=== PATIENT | female | born 1950 | race Caucasian/White ===

== ENCOUNTER → 2020-06-06 12:05 | Outpatient (CLI) | payer MEDICARE, SELFPAY ==
--- NOTE | ~2020-06-06 | MM_ITS ---
EXAMINATION: MM screening lyubov BI w paulo HISTORY: Screening mammogram TECHNIQUE: Craniocaudal and mediolateral oblique 3-D tomosynthesis images were obtained and synthetic 2-D images were generated. CAD analysis was submitted and interpreted. COMPARISON: 03/16/2019 diagnostic right and screening left digital mammogram and limited right breast u ltrasound 08/15/2018 limited right breast ultrasound 02/02/2018 diagnostic right digital mammogram and complete right breast ultrasound 01/27/2018 bilateral digital screening mammogram BREAST PARENCHYMAL COMPOSITION: There are scattered areas of fibroglandular density. FINDINGS: Occasional benign calcifications. Stable mild fibroglandular density. No suspicious mass or architectural distortion, malignant calcification, skin thickening or retraction or significant n ew or developing density is detected. IMPRESSION: 1. No mammographic evidence of malignancy. 2. Recommend routine screening mammography in one year. BI-RADS Category 2: Benign finding(s). Reviewed, dictated and finalized at location A.
== END ==
PROVIDERS: PCP Family Medicine; Visit Provider Family Medicine
DX: Z12.31 Encounter for screening mammogram for malignant neoplasm of breast (principal)
CPT/HCPCS: 77063; 77067

== ENCOUNTER 2020-12-26 15:31 | Outpatient (CLI) | payer MEDICARE, SELFPAY ==
--- NOTE | ~2020-12-26 | XR_ITS ---
XR knee RT min 4V DATE: 12/26/2020 15:49 INDICATION: Right knee pain TECHNIQUE: Marrowbone and standing AP, PA and lateral views COMPARISON: None FINDINGS: No fracture or dislocation or joint effusion. No periosteal reaction or bone destruction. Osteopenia. Chondrocalcinosis of medial and lateral compartment joint spaces. Joint spaces appear relatively pres erved. Slight periarticular spurring of the patella. IMPRESSION: Slight osteoarthritis at the patellofemoral compartments Chondrocalcinosis at medial and lateral compartments Osteopenia Reviewed, dictated and finalized at location B.
== END 2020-12-26 15:32 | disposition home or self-care (01) ==
PROVIDERS: PCP Family Medicine; Visit Provider Family Medicine
DX: M25.569 Pain in unspecified knee (principal); M17.11 Unilateral primary osteoarthritis, right knee; M11.261 Other chondrocalcinosis, right knee; M85.861 Other specified disorders of bone density and structure, right lower leg
CPT/HCPCS: 73564

== ENCOUNTER → 2021-07-15 13:26 | Outpatient (CLI) | payer MEDICARE, SELFPAY ==
--- NOTE | ~2021-07-15 | MM_ITS ---
EXAMINATION: MM screening lyubov BI w paulo HISTORY: Screening TECHNIQUE: Craniocaudal and mediolateral oblique 3-D tomosynthesis images were obtained and synthetic 2-D images were generated. CAD analysis was submitted and interpreted. COMPARISON: Comparison to multiple prior studies sequentially, with oldest reviewed study dated 12/16. BREAST PARENCHYMAL COMPOSITION: Breast composed of scattered areas of fibroglandular density FINDINGS: Bilateral breast asymmetries are stable. There is no evidence of suspicious mass, calcifica tion, or architectural distortion to suggest malignancy in either breast. There has been no suspiciou s interval change. IMPRESSION: 1. No mammographic evidence of malignancy. 2. Recommend routine screening mammography in one year. BI-RADS Category 1: Negative Reviewed, dictated and finalized at location A. [employer]PRISE [employer] ARCHITECT
== END ==
PROVIDERS: PCP Family Medicine; Visit Provider Family Medicine
DX: Z12.31 Encounter for screening mammogram for malignant neoplasm of breast (principal)
CPT/HCPCS: 77063; 77067

== ENCOUNTER 2022-03-10 09:42 | Outpatient (CLI) | payer MEDICARE, SELFPAY ==
--- NOTE | ~2022-03-10 | CT_ITS ---
EXAMINATION: CT abdomen pelvis wo/w con DATE: 03/10/2022 10:33 INDICATION: Colon cancer restaging TECHNIQUE: Computed tomography (CT) of the abdomen and pelvis was performed without and subsequently with 100 CC Omnipaque 350 intravenous contrast. Automated exposure control and iterative reconstructi on technique were employed. Exam dose: 680.54 mGy-cm total exam DLP. COMPARISON: December 03, 2016 CT abdomen pelvis FINDINGS: Minimal disc atelectasis and/or scarring at the lung bases. Fat-containing right foramen of Bochdalek hernia. Normal heart size. No pericardial or pleural effusion. Small sliding hiatal hernia. Numerous hepatic cysts are again noted. No pancreatic mass lesion. Normal splenic size. The gallbladder is present. No gallbladder wall thickening or pericholecystic fluid or fat stranding. No bile duct or pancreatic duct dilatation. Normal morphology of the adrenal glands. No renal mass lesion or urinary tract calculus or hydroureteronephrosis. A pessary device is noted. The urinary bladder is unremarkable. Status post hysterectomy. There is atherosclerotic calcification of the abdominal aorta and iliac arteries. No intraperitoneal or retroperitoneal or pelvic mass lesion or adenopathy or ascites is noted. Status post right colectomy. Diverticulosis of the colon; no CT evidence of diverticulitis. No bowel obstruction or intraperitonea l free air. Diffuse osteopenia. Chronic mild anterior wedge compression fracture deformity of T11. Burst fracture at T12, new since 12/03/2016. Severe degenerative disc disease noted at L4-5 and L5-S1. IMPRESSION: Status post right colectomy for colon malignancy; no recurrent or metastatic disease is evident Numerous hepatic cysts are again noted Diverticulosis of the colon; no CT evidence of diverticulitis Burst fracture at T12 Chronic T11 compression fracture Osteopenia Severe degenerative disc disease at L4-5 and L5-S1 Reviewed, dictated and finalized at Location A. Reviewed, dictated and finalized at location B.
[2022-03-10 10:25] LABS: Estimated Glomerular Filt Rate > 60
== END 2022-03-10 09:43 | disposition home or self-care (01) ==
PROVIDERS: PCP Family Medicine; Visit Provider Family Medicine
DX: K76.89 Other specified diseases of liver (principal); K86.2 Cyst of pancreas; Z90.49 Acquired absence of other specified parts of digestive tract; K57.90 Diverticulosis of intestine, part unspecified, without perforation or abscess without bleeding; S22.081A Stable burst fracture of T11-T12 vertebra, initial encounter for closed fracture; M85.89 Other specified disorders of bone density and structure, multiple sites; M51.37 Other intervertebral disc degeneration, lumbosacral region
CPT/HCPCS: 74178; Q9967

== ENCOUNTER 2022-05-20 15:21 | Outpatient (CLI) | payer MEDICARE, SELFPAY ==
--- NOTE | ~2022-05-20 | MR_ITS ---
EXAMINATION: MR knee RT wo con DATE: 05/20/2022 16:14 INDICATION: Right knee pain TECHNIQUE: Magnetic resonance imaging (MRI) of the right knee was performed without intravenous contr ast. Sequences included coronal PD-weighted FSE, coronal PD-weighted FS FSE, sagittal T2-weighted FS E, sagittal PD-weighted FS FSE and axial PD weighted fat saturated FSE. COMPARISON: None. FINDINGS: Medial compartment: Medial meniscus is normal. Articular cartilage is normal. Lateral compartment: Complex tear of the body and posterior horn of the lateral meniscus. Partial-thickness chondral ulcer ation involving greater than 50% the cartilage thickness at the central to posterior aspect of the la teral tibial plateau. Thin curvilinear fluid signal at the peripheral margins of an osteochondral les ion underlying the posterior weightbearing lateral femoral condyle. There is a shallow depression of the articular cortex and overlying articular cartilage which involves approximately 11 x 9 mm region. Articular cartilage along the remainder of the weightbearing lateral femoral condyle is normal. Patellofemoral compartment: Partial-thickness chondral ulceration involving greater than 50% the cartilage thickness and full/james r full-thickness chondral fissuring at the cephalad aspect of the patellar apical ridge and medial fa cet, the former with underlying subarticular edema-like signal change. Shallow chondral fissuring at the cephalad aspect of the lateral patellar facet. Partial-thickness cartilage loss with minimal tawny dral surface regularity lateral trochlea and inferior aspect of the trochlear groove. Ligaments and tendons: Anterior and posterior cruciate ligaments are normal. The medial collateral ligament and fibular mary ateral ligament complex are normal. The extensor mechanism is normal. The visualized medial and later al hamstring tendons as well as the iliotibial band are normal. Fluid: Physiologic amount of fluid in the joint space. No loose osteochondral bodies identified. Tiny Benitez' s cyst. Osseous/other: Bone alignment is normal. Osteochondral lesion as previously described at the posterior weightbearing lateral femoral condyle. No fracture or pathologic marrow replacing process. IMPRESSION: 1. Complex tear at the body and posterior horn of the lateral meniscus. 2. Osteochondral lesion with likely unstable osteochondral fragment and with some collapse of the art icular cortex and subtle depression of the overlying articular cartilage at the posterior weightbeari ng lateral femoral condyle. 3. Mild osteoarthritis with moderate and high-grade chondromalacia in the patellofemoral compartment and moderate grade chondral malacia in the lateral compartment. Reviewed, dictated and finalized at location B. IMPRESSION: 1. Complex tear at the body and posterior horn of the lateral meniscus. 2. Osteochondral lesion with likely unstable osteochondral fragment and with so me collapse of the articular cortex and subtle depression of the overlying frank cular cartilage at the posterior weightbearing lateral femoral condyle. 3. Mild osteoarthritis with moderate and high-grade chondromalacia in the guajardo lofemoral compartment and moderate grade chondral malacia in the lateral compar tment.
== END 2022-05-20 15:22 | disposition home or self-care (01) ==
PROVIDERS: PCP Emergency Medicine; Visit Provider Orthopaedic Surgery
DX: M17.11 Unilateral primary osteoarthritis, right knee (principal); M25.461 Effusion, right knee; S83.271A Complex tear of lateral meniscus, current injury, right knee, initial encounter
CPT/HCPCS: 73721

== ENCOUNTER 2022-07-07 11:26 | Day surgery (SDC) | payer MEDICARE, SELFPAY ==
[2022-06-25 11:23] VITALS: BMI 24.0
[2022-07-07 11:40] VITALS: BP 152/109; PULSE 100; RESP 16; TEMP 36.7; O2SAT 100
--- NOTE | 2022-07-07 12:25 | WPDANESEPPF ---
Anes - Initial Pre Proc Eval Procedure: Operation Date: 07/07/22 13:15 Proposed Procedures p Screening Colonoscopy - Se Barton MD Date/Time: 07/07/22 12:25 Surgeon: Se Barton MD Pre Op Diagnosis: History of colon cancer Patient Data Age: 72 Gender: F Height: 1.65 m Weight: 66.3 kg Allergies Allergy/AdvReac Type Severity Reaction Status Date / Time neomycin Allergy Intermediate RASH Verified 07/07/22 11:44 bacitracin Allergy Mild Unknown Verified 07/07/22 11:44 polymyxin B Allergy Mild Unknown Verified 07/07/22 11:44 Quinolones Allergy Mild Unknown Verified 07/07/22 11:44 atenolol Allergy Unknown constipatio Verified 07/07/22 11:44 n codeine Allergy Unknown Unknown Verified 07/07/22 11:44 lisinopril Allergy Unknown Skin Verified 07/07/22 11:44 Reaction metoprolol Allergy Unknown edema Verified 07/07/22 11:44 Home Medications Medication Instructions Recorded Confirmed Type cetirizine 10 mg tablet 5 mg PO DAILY 09/12/19 07/07/22 History diltiazem HCl 240 mg See Rx Instructions .Route 12/15/21 07/07/22 Rx capsule,extended release 24 hr .COMPLEX #90 caps sodium,potassium,mag sulfates 17.5 See Rx Instructions PO .COMPLEX 03/23/22 07/07/22 Rx gram-3.13 gram-1.6 gram oral soln #354 mL (Suprep Bowel Prep Kit) Patient hx anesthesia problems: none Family hx anesthesia problems: none Results Review: All pre-operative results and documents have been reviewed as part of the pre-operative evaluation. [facility] Past Medical History Medical History Breast tumor 1977, 1980, 2003 Calculus of parotid gland (~2010) Colon cancer 2014 colectomy stage one History of stress test (~2013) Surgical History Surgical History H/O lumpectomy History of cataract extraction (~1995) History of colectomy (~2013) History of colonoscopy (~09/02/16) History of hysterectomy (~1974) Hx of breast biopsy Family History Family History Mother Hypertension Diabetes mellitus Family history of glaucoma Family history of cardiovascular disease Father Hypertension Family history of malignant melanoma Sibling Cerebrovascular accident Other Family history of allergic disorder Family history of seizure disorder Social History Social History Smoking status: Former smoker Tobacco type: cigarettes Smoking end date: 08/09/11 Alcohol intake: unknown Substance use: never Substance use type: does not use Lack of Transportation: No Lack of Food: Never True Current Housing: I Have Housing Concerned About Future Housing: No Difficulty Paying Gas/Electric Bills: No Difficulty Paying for Meds: No Currently Unemployed: No Education: High School Diploma/GED Living arrangements: with family Spiritual care concerns: No Anes - Eval Final PreProcedure Day of Procedure 07/07/22 12:25 Patient weight: normal Heart: regular rate and rhythm Lungs: clear to auscultation Airway: Mallampati scale class II Neurological: alert and oriented Last oral intake: >/= 8 hours ASA classification: II Emergent: no Anesthetic plan: proceed Anesthesia type and monitoring: general GIVS and standard monitoring Results Review: All pre-operative results and documents have been reviewed as part of the pre-operative evaluation. Informed Consent: The patient's anesthetic plan and its attendant risks and benefits were discussed with the patient/family/POA. Questions were solicited and answers provided to the satisfaction of the patient/family/POA.
[2022-07-07] MEDS: LACTATED RINGERS 1,000 ML 150 ML IV CONT (12:37)
--- NOTE | 2022-07-07 13:16 | PM.HPGS ---
History of Present Illness History of Present Illness Consent: Risks, benefits, and alternatives have been discussed and questions answered. Patient agrees to proceed with procedure. Chief complaint: History of colon cancer Narrative: Areli Lemus is a 72 year old female Presents for screening colonoscopy. Patient has a history of colon cancer in the cecum diagnosed 2015. This was treated with right hemicolectomy. Follow-up colonoscopy 2016 revealed colon polyps. Patient presents today for follow-up surveillance colonoscopy. Patient's current weight appetite and bowel movements are normal. She denies abdominal pain. She has had no bleeding. Family history noncontributory. Review of Systems Review of Systems: Review of systems noncontributory. [facility] Past Medical History Medical History Breast tumor 1977, 1980, 2002 Calculus of parotid gland (~2010) Colon cancer 2014 colectomy stage one History of stress test (~2013) Surgical History Surgical History H/O lumpectomy History of cataract extraction (~1995) History of colectomy (~2013) History of colonoscopy (~09/02/16) History of hysterectomy (~1974) Hx of breast biopsy Family History Family History Mother Hypertension Diabetes mellitus Family history of glaucoma Family history of cardiovascular disease Father Hypertension Family history of malignant melanoma Sibling Cerebrovascular accident Other Family history of allergic disorder Family history of seizure disorder Social History Social History Smoking status: Former smoker Tobacco type: cigarettes Smoking end date: 08/09/11 Alcohol intake: unknown Substance use: never Substance use type: does not use Lack of Transportation: No Lack of Food: Never True Current Housing: I Have Housing Concerned About Future Housing: No Difficulty Paying Gas/Electric Bills: No Difficulty Paying for Meds: No Currently Unemployed: No Education: High School Diploma/GED Living arrangements: with family Spiritual care concerns: No Meds Home Medications and Allergies Home Medications Medication Instructions Recorded Confirmed Type cetirizine 10 mg tablet 5 mg PO DAILY 09/12/19 07/07/22 History diltiazem HCl 240 mg See Rx Instructions .Route 12/15/21 07/07/22 Rx capsule,extended release 24 hr .COMPLEX #90 caps sodium,potassium,mag sulfates 17.5 See Rx Instructions PO .COMPLEX 03/23/22 07/07/22 Rx gram-3.13 gram-1.6 gram oral soln #354 mL (Suprep Bowel Prep Kit) Allergies Allergy/AdvReac Type Severity Reaction Status Date / Time neomycin Allergy Intermediate RASH Verified 07/07/22 11:44 bacitracin Allergy Mild Unknown Verified 07/07/22 11:44 polymyxin B Allergy Mild Unknown Verified 07/07/22 11:44 Quinolones Allergy Mild Unknown Verified 07/07/22 11:44 atenolol Allergy Unknown constipatio Verified 07/07/22 11:44 n codeine Allergy Unknown Unknown Verified 07/07/22 11:44 lisinopril Allergy Unknown Skin Verified 07/07/22 11:44 Reaction metoprolol Allergy Unknown edema Verified 07/07/22 11:44 Vital Signs Vital Signs - 24 hr 07/07/22 11:40 Temperature 98.1 F Pulse Rate 100 Respiratory Rate 16 Blood Pressure 152/109 H Pulse Oximetry 100 Oxygen Delivery Room Air Exam Narrative: Physical exam reveals patient to be alert. Vital signs stable. HEENT exam is unremarkable. Patient is anicteric. Lungs are clear to auscultation and percussion. Heart is without murmur or extra sounds. Abdomen bowel sounds present soft nontender with no organomegaly. Digital external rectal exam normal. Assessment and Plan Assessment and plan (1) History of colon cancer: Code(s): Z85.038 - Personal history of other ma
[2022-07-07 13:39] VITALS: BP 121/77; PULSE 73; RESP 14; O2SAT 98
[2022-07-07 13:49] VITALS: BP 125/90; PULSE 67; RESP 14; O2SAT 100
[2022-07-07 13:59] VITALS: BP 139/87; PULSE 69; RESP 13; O2SAT 98
--- NOTE | 2022-07-07 14:22 | WPDANESPN ---
Anes - Prog Note Post-Op Date/Time: 07/07/22 14:22 Cardiovascular status: normal Respiratory status: normal Airway patency: baseline Mental status: baseline Post-Op hydration status: normal Vital Signs: Last Vital Signs Temp 36.7 C 07/07/22 11:40 Pulse 69 07/07/22 13:59 Resp 13 07/07/22 13:59 BP 139/87 07/07/22 13:59 Pulse Ox 98 07/07/22 13:59 O2 Del Method Room Air 07/07/22 13:59 Pain Score (VAS): 0 I/O: Intake & Output 07/06/22 07/07/22 07/07/22 23:59 07:59 15:59 Intake Total 700 Balance 700 Patient Feedback: Patient satisfied with anesthetic care.
== END 2022-07-07 14:23 | disposition home or self-care (01) ==
PROVIDERS: PCP Emergency Medicine; Visit Provider Internal Medicine Gastroenterology
PROC: 0DJD8ZZ Inspection of Lower Intestinal Tract, Via Natural or Artificial Opening Endoscopic (ICD-10-PCS; CPT 45378; principal; 2022-07-07 13:15)
DX: Z85.038 Personal history of other malignant neoplasm of large intestine (principal)
CPT/HCPCS: 45378

== ENCOUNTER 2022-08-14 08:19 | Outpatient (CLI) | payer MEDICARE, SELFPAY ==
--- NOTE | 2022-08-14 08:28 | ECG_ITS ---
Measurements Intervals [place] Rate: 61 P: 40 MN: 156 QRS: -6 QRSD: 98 T: 1 QT: 398 QTc: 403 Interpretive Statements SINUS RHYTHM BASELINE ARTIFACT- I, II, III, AVR, AVL, AVF, V1-V6 NORMAL ECG NO PREVIOUS ECG AVAILABLE FOR COMPARISON Electronically Signed On 08-14-2022 8:40:[address]MIN[employer]RATIVE ENGINEER by Juice Gill D.O.
== END 2022-08-14 08:20 | disposition home or self-care (01) ==
PROVIDERS: PCP Emergency Medicine; Visit Provider Orthopaedic Surgery
DX: Z01.818 Encounter for other preprocedural examination (principal); I10 Essential (primary) hypertension
CPT/HCPCS: 93005

== ENCOUNTER 2022-08-17 00:20 | Day surgery (SDC) | payer MEDICARE, SELFPAY ==
--- NOTE | 2022-08-13 13:35 | PC.NURSE ---
Report to the Outpatient Waiting Room, entrance under the green pavilion located off [facility], at time __1300 on date _08/17/22 . Planned Procedure Time: _1500 . Time changes happen often and if your time is changed the preop area will call you the afternoon before. - You and your visitor will be asked to self-screen and do not enter if you have any COVID symptoms. - Only one visitor is requested with a max of two and NO children visitors are allowed at this time. - The patient visitor may be requested to leave or wait in car when not with patient due to distancing restrictions. - A mask is optional within the hospital. Patients may have clear liquids (water, carbonated beverages, clear teas, apple juice) until 3 hours prior to surgery with a maximum of 20 ounces. - No food from midnight until time of surgery - Infants may have breast milk until 4 hours before surgery, infant formula 6 hours prior to surgery. - Children will be allowed to drink immediately following surgery. If applicable, please bring a bottle or sippy cup to assist with drinking. Juice, water, soda, and popsicles are readily available. For infants on formula, please bring formula the day of surgery. Pacifiers are allowed. Take the following medications with a SIP of water the morning of surgery: __DILTIAZEN EYE DROP Medications to discontinue per physician NONE Please no make-up, nail italian, hairspray, perfume, deodorant, or body powder the day of surgery. No jewelry (including any body piercings) or valuables the day of surgery, leave them at home. Please take a shower or bath the night before, or the morning of, surgery with an antibacterial soap. Wear comfortable, loose fitting clothing. Children are encouraged to wear pajamas. - Jewelry must be removed prior to entering the operating room. Rings and piercings that are not removed may be cut off. - The hospital will not accept responsibility for valuables. - Please leave all valuables, including medications, at home the day of surgery. If you are going home after surgery, a licensed helper/driver must drive you home. - NO public transportation without another adult if you receive anesthesia. - We recommend that an adult stay with you for 24 hours following discharge. - We also recommend that you do not drive, make important decision, drink alcoholic beverages, or take any drugs that were not prescribed by your health care provider for at least 24 hours after your discharge time. Follow any additional instructions given to you from your surgeon. If you or anyone in your household have experienced Covid symptoms in the past week, please notify your surgeon or the nurse liaison at the phone number below for possible testing. Telephone instructions given to __PATIENT and asked if any additional questions and then verbalized understanding. Patient advised to call surgeon office or pre surgery nurse liaison [phone] if any additional questions.
[2022-08-13 13:41] VITALS: BMI 25.0
[2022-08-17] VITALS (9 sets, daily range): BP systolic 140–180; BP diastolic 81–104; PULSE 68–88; RESP 15–20; TEMP 36.4–36.7; O2SAT 93–100
--- NOTE | 2022-08-17 11:44 | WPDHPUPDATE1 ---
History and Physical Update Update Date/Time: 08/17/22 11:44 History and Physical has been reviewed, including an updated exam of the patient. There are NO changes in the patient's condition. Risks, benefits, and alternatives have been discussed and questions answered. Patient agrees to proceed with procedure.
[2022-08-17] MEDS: ACETAMINOPHEN 500 MG TABLET 1000 MG PO (13:34)
--- NOTE | 2022-08-17 13:36 | WPDANESEPPF ---
Anes - Initial Pre Proc Eval Procedure: Operation Date: 08/17/22 15:00 Proposed Procedures p Right Knee Arthroscopic Partial Lateral Meniscectomy - Marc Coppola MD Date/Time: 08/17/22 13:36 Surgeon: Marc Coppola MD Pre Op Diagnosis: Lateral Meniscus Tear Rt Knee Patient Data Age: 72 Gender: F Height: 1.65 m Weight: 68.05 kg Allergies Allergy/AdvReac Type Severity Reaction Status Date / Time neomycin Allergy Intermediate RASH Verified 08/13/22 13:24 bacitracin Allergy Mild Unknown Verified 08/13/22 13:24 polymyxin B Allergy Mild Unknown Verified 08/13/22 13:24 Quinolones Allergy Mild Unknown Verified 08/13/22 13:24 codeine Allergy Unknown Unknown Verified 08/13/22 13:24 lisinopril Allergy Unknown Skin Verified 08/13/22 13:24 Reaction metoprolol Allergy Unknown edema Verified 08/13/22 13:24 atenolol AdvReac Unknown constipatio Verified 08/17/22 09:00 n Home Medications Medication Instructions Recorded Confirmed Type diltiazem HCl 240 mg See Rx Instructions .Route 12/15/21 08/13/22 Rx capsule,extended release 24 hr .COMPLEX #90 caps acetaminophen 650 mg 1,300 mg PO Q12H PRN Pain 08/13/22 08/13/22 History tablet,extended release (Tylenol Arthritis Pain) cetirizine 10 mg tablet (Zyrtec) 10 mg PO DAILY 08/13/22 08/13/22 History timolol maleate 0.5 % eye gel 1 drp EACH EYE DAILY 08/13/22 08/13/22 History forming solution Patient hx anesthesia problems: none Family hx anesthesia problems: none Results Review: All pre-operative results and documents have been reviewed as part of the pre-operative evaluation. [facility] Past Medical History Medical History (Updated 08/17/22 @ 13:36 by Derrick Baird DO) Breast tumor 1977, 1980, 2002 Calculus of parotid gland (~2010) Colon cancer 2014 colectomy stage one History of stress test (~2013) Hypertension Surgical History Surgical History H/O lumpectomy History of cataract extraction (~1995) History of colectomy (~2013) History of colonoscopy (~09/02/16) History of hysterectomy (~1974) Hx of breast biopsy Family History Family History Mother Hypertension Diabetes mellitus Family history of glaucoma Family history of cardiovascular disease Father Hypertension Family history of malignant melanoma Sibling Cerebrovascular accident Other Family history of allergic disorder Family history of seizure disorder Social History Social History Smoking packs per day: 1 Smoking cigarettes per day: 20.0 Years smoked: 40 Smoking pack-years: 40.00 Smoking status: Former smoker Tobacco type: cigarettes Smoking end date: 08/09/11 Alcohol intake: unknown Substance use: never Substance use type: does not use Lack of Transportation: No Lack of Food: Never True Current Housing: I Have Housing Concerned About Future Housing: No Difficulty Paying Gas/Electric Bills: No Difficulty Paying for Meds: No Currently Unemployed: No Education: High School Diploma/GED Living arrangements: with family Spiritual care concerns: No Anes - Eval Final PreProcedure Day of Procedure 08/17/22 13:36 Patient weight: normal Heart: regular rate and rhythm Lungs: clear to auscultation and normal air movement Airway: Mallampati scale class II Neurological: alert and oriented Last oral intake: >/= 8 hours ASA classification: III Emergent: no Anesthetic plan: proceed Anesthesia type and monitoring: general LMA and standard monitoring Results Review: All pre-operative results and documents have been reviewed as part of the pre-operative evaluation. Informed Consent: The patient's anesthetic plan and its attendant risks and benefits were discussed with the patient/family/POA. Questions were solicited and answers
[2022-08-17] MEDS: LACTATED RINGERS 1,000 ML 30 ML IV CONT (13:42)
--- NOTE | 2022-08-17 14:08 | SUR.PREOP ---
1400- REVIEWED ELEVATED BP WITH DR. KUMAR. NO ORDERS GIVEN, WILL CONTINUE TO MONITOR
[2022-08-17] MEDS: KETOROLAC 15 MG/ML VIAL (*BKC) IV PUSH (14:15)
[2022-08-17] MEDS: ceFAZolin 2 GM/D5W 50 ML 2 GM/50 ML BAG IVPB (14:56)
[2022-08-17] MEDS: BUPIVACAINE/EPINEPHRINE 0.5% 30 ML VIAL INFILTRATE (15:10)
--- NOTE | 2022-08-17 16:31 | P.OP_ITS ---
Procedure Note - Detailed Date of Procedure 08/17/22 Pre-op Diagnosis Lateral Meniscus Tear Rt Knee Post-op Diagnosis Same Procedure Performed Arthroscopic partial lateral meniscectomy, right knee. Surgeon Marc Coppola MD Anesthesia General Findings Mild degenerative changes primarily at the patella and lateral tibia. 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 Femur broached good. Medial compartment good. Chondrocalcinosis in the medial meniscus with mild fraying. ACL intact. New line extensive lateral meniscus tearing with loose flap near the notch and at the lateral joint. Description of Procedure The patient was identified and the surgical site confirmed and signed in the preoperative holding area. Antibiotics were started per protocol. She was brought to the operative room and transferred to the OR table. A general anesthetic was administered. Supine position with the operative lower extremity position in the leg manley after placement of a well padded tourniquet. The leg support was lowered and the contralateral limb was supported with a soft bolster. The knee was prepped and draped in the usual sterile fashion. A time- out was performed. The portal sites were marked and infiltrated with 0.5% Marcaine 20 mL. The limb was exsanguinated and the tourniquet inflated to 300 mL Hg. Standard inferolateral and inferomedial portals were established. Inflow was obtained with the saline pump. The camera was introduced. Diagnostic inspection of the joint was accomplished. The lateral meniscus was debrided with the arthroscopic shaver and punches until stable. The radiofrequency probe was also used for further d?bridement. The arthroscopic instruments were removed. The tourniquet released and wounds closed with subcutaneous 4-0 Monocryl absorbable suture. Steri strips and a sterile dressing were applied. A light elastic wrap was placed. The patient was extubated and brought to the recovery room in stable condition. Estimated Blood Loss -5.0 Drains No Complications No immediate complications Condition Stable Disposition PACU [facility] Billing Surgery - Charge Forward: Surgery Billing
== END 2022-08-17 17:45 | disposition home or self-care (01) ==
PROVIDERS: PCP Emergency Medicine; Visit Provider Orthopaedic Surgery
PROC: (CPT 29870; principal; 2022-08-17 15:00)
DX: S83.271A Complex tear of lateral meniscus, current injury, right knee, initial encounter (principal); W19.XXXA Unspecified fall, initial encounter; M22.41 Chondromalacia patellae, right knee; M11.261 Other chondrocalcinosis, right knee; I10 Essential (primary) hypertension; Z85.038 Personal history of other malignant neoplasm of large intestine; Z90.49 Acquired absence of other specified parts of digestive tract; Z87.891 Personal history of nicotine dependence
CPT/HCPCS: 29881; 93005; A9270; J0690; J1100; J1885; J2250; J2405; J2704; J3010; J7120

== ENCOUNTER 2022-09-15 19:30 | Emergency (ER) | payer MEDICARE, SELFPAY ==
--- NOTE | 2022-09-15 19:32 | ED.FEMALEGU ---
HPI - Female Genitourinary General Chief complaint: Urogenital-Female Stated complaint: Female Urogenital Time Seen by Provider: 09/15/22 19:38 Source: patient, RN notes reviewed and old records reviewed Mode of arrival: ambulatory Limitations: no limitations History of Present Illness HPI Narrative: 72-year-old female presents to the [facility] with concerns for a UTI. Since this evening has had urgency, burning and frequency. Had a history of UTIs. Last UTI was 2018. Denies any nausea vomiting. Denies abdominal pain, CVA tenderness MD elicited complaint: UTI Onset (ago): hour(s) Related Data Home Medications Medication Instructions Recorded Confirmed cetirizine 10 mg tablet (Zyrtec) 10 mg PO DAILY 08/13/22 09/15/22 timolol maleate 0.5 % eye gel 1 drp EACH EYE DAILY 08/13/22 09/15/22 forming solution Allergies Allergy/AdvReac Type Severity Reaction Status Date / Time metoprolol Allergy Intermediate Dizziness Verified 08/31/22 10:34 neomycin Allergy Intermediate RASH Verified 08/31/22 10:34 bacitracin Allergy Mild Unknown Verified 08/31/22 10:34 polymyxin B Allergy Mild Unknown Verified 08/31/22 10:34 Quinolones Allergy Mild Unknown Verified 08/31/22 10:34 codeine Allergy Unknown Unknown Verified 08/31/22 10:34 lisinopril Allergy Unknown Skin Verified 08/31/22 10:34 Reaction atenolol AdvReac Unknown constipatio Verified 08/31/22 10:34 n Review of Systems Review of Systems: All systems reviewed & are unremarkable except as noted in HPI and below Constitutional: Constitutional: Reports no additional constitutional complaints Eyes: Eyes: Reports no additional eye complaints ENT: Reports system reviewed and no additional complaints, except as documented Cardiovascular: Cardiovascular: Reports no additional cardiovascular complaints, Denies chest pain and Denies dyspnea Respiratory: Respiratory: Reports no additional respiratory complaints, Denies chest congestion, Denies cough and Denies dyspnea Gastrointestinal: Gastrointestinal: Reports no additional gastrointestinal complaints, Denies abdominal pain, Denies nausea and Denies vomiting Genitourinary: Genitourinary: Reports as per HPI and Reports dysuria Musculoskeletal: Musculoskeletal: Reports no additional musculoskeletal complaints Integumentary/Breasts: Skin/Breast: Reports system reviewed and no additional complaints, except as docu Neurologic: Reports system reviewed and no additional complaints, except as documented Psychiatric: Psychiatric: Reports no additional psychiatric complaints Allergic/Immunologic: Allergic/Immunologic: Reports no additional allergic/immunologic complaints [facility] Past Medical History Medical History Breast tumor 1977, 1980, 2002 Calculus of parotid gland (~2010) Colon cancer 2014 colectomy stage one History of stress test (~2013) Hypertension Surgical History Surgical History H/O lumpectomy History of cataract extraction (~1995) History of colectomy (~2013) History of colonoscopy (~09/02/16) History of hysterectomy (~1974) History of meniscectomy of right knee (~08/17/22) Arthroscopic Lateral Hx of breast biopsy Family History Family History Mother Hypertension Diabetes mellitus Family history of glaucoma Family history of cardiovascular disease Father Hypertension Family history of malignant melanoma Sibling Cerebrovascular accident Other Family history of allergic disorder Family history of seizure disorder Social History Social History Smoking packs per day: 1 Smoking cigarettes per day: 20.0 Years smoked: 40 Smoking pack-years: 40.00 Smoking status: Former smoker Tobacco type: cigarettes Smoking end date: 08/09/11 Alcohol intake: unknow
[2022-09-15 19:34] VITALS: BP 177/86; PULSE 81; RESP 16; TEMP 35.9; O2SAT 98
== END 2022-09-15 19:58 | disposition home or self-care (01) ==
PROVIDERS: Emergency Provider Nurse Practitioner; PCP Emergency Medicine
DX: N39.0 Urinary tract infection, site not specified (principal); Z87.891 Personal history of nicotine dependence; I10 Essential (primary) hypertension; Z85.038 Personal history of other malignant neoplasm of large intestine; Z90.49 Acquired absence of other specified parts of digestive tract
CPT/HCPCS: 81003; 87077; 87086; 87186; 99213; G0463

== ENCOUNTER → 2022-12-15 13:25 | Outpatient (CLI) | payer MEDICARE, SELFPAY ==
--- NOTE | ~2022-12-15 | MM_ITS ---
EXAMINATION: MM screening lyubov BI w paulo HISTORY: Screening mammogram TECHNIQUE: Craniocaudal and mediolateral oblique 3-D tomosynthesis images were obtained and synthetic 2-D images were generated. CAD analysis was submitted and interpreted. COMPARISON: 07/15/2021, 06/06/2020, 03/16/2019 BREAST PARENCHYMAL COMPOSITION:There are scattered areas of fibroglandular density. FINDINGS: No suspicious mass, calcification, or architectural distortion are identified in either john ast to suggest malignancy. There has been no suspicious interval change. IMPRESSION: No mammographic evidence of malignancy. Recommend routine screening mammography in one year. BI-RADS Category 1: Negative Reviewed, dictated and finalized at location .
== END ==
PROVIDERS: PCP Emergency Medicine; Visit Provider Emergency Medicine
DX: Z12.31 Encounter for screening mammogram for malignant neoplasm of breast (principal)
CPT/HCPCS: 77063; 77067

== ENCOUNTER → 2023-05-27 10:12 | Outpatient (CLI) | payer MEDICARE, SELFPAY ==
--- NOTE | ~2023-05-27 | DEXA_ITS ---
Bone Density Report Name: JORDAN BARAHONA Age: 73 Sex: Female Ethnicity: White Date of : 1950 Indication: postmenopausal; screening for osteoporosis; parental hip fracture; height loss; history of glucocorticoids; hysterectomy; Referring Provider: DEYSI MCKEON Study: Bone densitometry was performed. Exam Date: May 27, 2023 Accession number: [id number] Bone Density: Region BMD T-score Z-score Classification AP Spine (L1-L4) 0.769 -2.5 -0.3 Osteoporosis Femoral Neck (Left) 0.573 -2.5 -0.6 Osteoporosis Total Hip (Left) 0.674 -2.2 -0.6 Osteopenia Femoral Neck (Right) 0.553 -2.7 -0.8 Osteoporosis Total Hip (Right) 0.655 -2.4 -0.7 Osteopenia Total Hip Mean 0.665 -2.3 -0.7 Osteopenia World Health Organization criteria for BMD impression classify patients as: Normal (T-score at or above -1.0), Osteopenia (T-score between -1.0 and -2.5), or Osteoporosis (T-score at or below -2.5). 10-year Fracture Risk: FRAX not reported because: Some T-score for Spine Total or Hip Total or Femoral Neck at or below -2.5 Clinical Information Provided by Patient: Parent has had a hip fracture Has taken Glucocorticoids Has used the following medications: Vitamin D Has the following medical conditions: Hysterectomy, Hx of colon Patient maximum height was 66.0 Menopause Age: 25 No regular weight bearing exercise Drinks caffeinated beverages Onset of menses at age 11 Number of children 2 Impression: The patient has osteoporosis, based on the Right Femoral Neck T-score. The patient has risk factors, including: parental hip fracture, history of glucocorticoid therapy. Discussion: INCREASED RISK OF FRACTURE. BONE DENSITY IS UNDESIRABLY LOW AT ONE OR MORE SKELETAL SITES, CONSISTENT WITH POSTMENOPAUSAL OSTEOPOROSIS. This patient's lowest T-score meets the World Health Organization's (WHO) criteria for osteoporosis at one or more sites (T-score -2.5 or below). In untreated patients, the risk of osteoporotic fracture increases approximately two-fold for each 1.0 SD decrease in T-score. Low bone density is not the only risk factor for fracture; also consider factors such as patient's age, frailty or poor health, risk of falling, risk of injury, previous osteoporotic fracture, family history of osteoporosis, cigarette smoking, low body weight, etc. Not everyone with low bone mineral density has osteoporosis; osteomalacia and other metabolic bone disorders should also be considered. Patients who have osteoporosis should be evaluated for specific diseases and conditions (secondary causes) that may cause or contribute to bone loss. The [place] [employer]ocr[employer] (AACE) and National Osteoporosis Foundation (NOF) recommend pharmacologic intervention for all postmenopausal women whose T-score is in this range. The
== END ==
PROVIDERS: PCP Emergency Medicine; Visit Provider Emergency Medicine
DX: M85.88 Other specified disorders of bone density and structure, other site (principal); M81.0 Age-related osteoporosis without current pathological fracture
CPT/HCPCS: 77080

== ENCOUNTER 2023-10-07 09:54 | Emergency (ER) | payer MEDICARE, SELFPAY ==
[2023-10-07 10:12] VITALS: BP 185/83; PULSE 67; RESP 18; TEMP 36.3; O2SAT 98
--- NOTE | 2023-10-07 10:23 | ED.FEMALEGU ---
HPI - Female Genitourinary General Chief complaint: Urogenital-Female Stated complaint: uti symptoms Time Seen by Provider: 10/07/23 10:25 Source: patient Mode of arrival: ambulatory Limitations: no limitations History of Present Illness HPI Narrative: Areli is a 73-year-old female patient presenting to the clinic today with complaints of possible urinary tract infection. She reports she is having burning with urination and urgency as well. States that there is lot of pain over her bladder. Denies any abdomen pain or flank pain. Denies any fever, chills, or body aches. Related Data Home Medications Medication Instructions Recorded Confirmed cetirizine 10 mg tablet (Zyrtec) 10 mg PO DAILY 08/13/22 10/07/23 timolol maleate 0.5 % eye gel 1 drp EACH EYE DAILY 08/13/22 10/07/23 forming solution acetaminophen 650 mg 650 mg PO Q12H 09/28/22 10/07/23 tablet,extended release (Tylenol Arthritis Pain) psyllium husk 0.4 gram capsule 0.4 g PO DAILY 09/28/22 10/07/23 (Metamucil) Allergies Allergy/AdvReac Type Severity Reaction Status Date / Time metoprolol Allergy Intermediate Dizziness Verified 10/07/23 10:23 neomycin Allergy Intermediate RASH Verified 10/07/23 10:23 bacitracin Allergy Mild Unknown Verified 10/07/23 10:23 polymyxin B Allergy Mild Unknown Verified 10/07/23 10:23 Quinolones Allergy Mild Unknown Verified 10/07/23 10:23 codeine Allergy Unknown Unknown Verified 10/07/23 10:23 lisinopril Allergy Unknown Skin Verified 10/07/23 10:23 Reaction atenolol AdvReac Unknown constipatio Verified 10/07/23 10:23 n Review of Systems Review of Systems: Pertinent positives per HPI. Patient denies any fever, chills, rash, headache, visual changes, dizziness, cough, runny nose, sore throat, shortness of breath, chest pain, palpitations, nausea, vomiting, diarrhea, constipation, abdominal pain. [facility] Past Medical History Medical History Breast tumor 1978, 1980, 2003 Calculus of parotid gland (~2010) Colon cancer 2014 colectomy stage one History of stress test (~2013) Hypertension Surgical History Surgical History H/O lumpectomy History of cataract extraction (~1995) History of colectomy (~2013) History of colonoscopy (~09/02/16) History of hysterectomy (~1974) History of meniscectomy of right knee (~08/17/22) Arthroscopic Lateral Hx of breast biopsy Family History Family History Mother Hypertension Diabetes mellitus Family history of glaucoma Family history of cardiovascular disease Father Hypertension Family history of malignant melanoma Sibling Cerebrovascular accident Other Family history of allergic disorder Family history of seizure disorder Social History Social History Smoking packs per day: 1 Smoking cigarettes per day: 20.0 Years smoked: 40 Smoking pack-years: 40.00 Smoking status: Former smoker Tobacco type: cigarettes Smoking end date: 08/09/11 Alcohol intake: unknown Substance use: never Substance use type: does not use Lack of Transportation: No Lack of Food: Never True Current Housing: I Have Housing Concerned About Future Housing: No Difficulty Paying Gas/Electric Bills: No Difficulty Paying for Meds: No Currently Unemployed: No Education: High School Diploma/GED Living arrangements: with family Gender identity (if verbalized by the patient): Female Sexual Orientation (if Verbalized by the Patient): Straight or Heterosexual Spiritual care concerns: No Comments At the time of my signature, I reviewed and agree with the nursing past medical, surgical, social, and family history. There is no relevant family history pertinent to the patient complaint. Exam Narrative: General: Well-deve
== END 2023-10-07 10:30 | disposition home or self-care (01) ==
PROVIDERS: Emergency Provider Nurse Practitioner Family; PCP Emergency Medicine
DX: N39.0 Urinary tract infection, site not specified (principal); B95.1 Streptococcus, group B, as the cause of diseases classified elsewhere; I10 Essential (primary) hypertension; Z85.038 Personal history of other malignant neoplasm of large intestine; Z90.49 Acquired absence of other specified parts of digestive tract
CPT/HCPCS: 81003; 87077; 87086; 87088; 99213; G0463

== ENCOUNTER 2023-11-12 16:05 | Emergency (ER) | payer MEDICARE, SELFPAY ==
[2023-11-12 16:22] VITALS: BP 171/97; PULSE 92; RESP 16; TEMP 36.2; O2SAT 100
--- NOTE | 2023-11-12 16:59 | ED.FEMALEGU ---
HPI - Female Genitourinary General Chief complaint: Urogenital-Female Stated complaint: Urinary Problems Time Seen by Provider: 11/12/23 16:54 Source: patient, RN notes reviewed and old records reviewed Mode of arrival: ambulatory Limitations: no limitations History of Present Illness HPI Narrative: Patient presents today complaining of a 4 day history of dysuria, frequency, urgency, voiding small amounts. Denies hematuria, abdominal pain, back pain, fever. No [id number] treatment prior to arrival. Review of urine culture from September 2019 for showed a some growth group beta strep. Related Data Home Medications Medication Instructions Recorded Confirmed cetirizine 10 mg tablet (Zyrtec) 10 mg PO DAILY 08/13/22 11/12/23 timolol maleate 0.5 % eye gel 1 drp EACH EYE DAILY 08/13/22 11/12/23 forming solution acetaminophen 650 mg 650 mg PO Q12H 09/28/22 11/12/23 tablet,extended release (Tylenol Arthritis Pain) psyllium husk 0.4 gram capsule 0.4 g PO DAILY 09/28/22 11/12/23 (Metamucil) Allergies Allergy/AdvReac Type Severity Reaction Status Date / Time atenolol AdvReac Intermediate constipatio Verified 11/12/23 16:35 n metoprolol AdvReac Intermediate Dizziness Verified 11/12/23 16:35 bacitracin AdvReac Mild Rash Verified 11/12/23 16:35 codeine AdvReac Mild Rash Verified 11/12/23 16:35 lisinopril AdvReac Mild Skin Verified 11/12/23 16:35 Reaction neomycin AdvReac Mild RASH Verified 11/12/23 16:35 polymyxin B AdvReac Mild Rash Verified 11/12/23 16:35 Quinolones AdvReac Mild Rash Verified 11/12/23 16:35 Review of Systems Review of Systems: CONSTITUTIONAL: Denies body aches, fever, chills, or sweats. EYES: Denies visual changes, redness, or discharge. ENT: Denies rhinorrhea, congestion, sore throat, or otalgia. CARDIOVASCULAR: Denies chest pain, palpitations, or edema. RESPIRATORY: Denies cough or dyspnea. GASTROINTESTINAL: Denies abdominal pain, nausea, vomiting, or diarrhea. GENITOURINARY: + dysuria, frequency, urgency SKIN: Denies rash, itching, or wounds. MUSCULOSKELETAL: Denies back pain, joint pain, or myalgia. NEUROLOGIC: Denies headache, numbness, tingling, or weakness. PSYCH: Denies depression or anxiety. [facility] Past Medical History Medical History Breast tumor 1977, 1980, 2003 Calculus of parotid gland (~2010) Colon cancer 2014 colectomy stage one History of stress test (~2013) Hypertension Surgical History Surgical History H/O lumpectomy History of cataract extraction (~1995) History of colectomy (~2013) History of colonoscopy (~09/02/16) History of hysterectomy (~1974) History of meniscectomy of right knee (~08/17/22) Arthroscopic Lateral Hx of breast biopsy Family History Family History Mother Hypertension Diabetes mellitus Family history of glaucoma Family history of cardiovascular disease Father Hypertension Family history of malignant melanoma Sibling Cerebrovascular accident Other Family history of allergic disorder Family history of seizure disorder Social History Social History Smoking packs per day: 1 Smoking cigarettes per day: 20.0 Years smoked: 40 Smoking pack-years: 40.00 Smoking status: Former smoker Tobacco type: cigarettes Smoking end date: 08/09/11 Alcohol intake: unknown Substance use: never Substance use type: does not use Lack of Transportation: No Lack of Food: Never True Current Housing: I Have Housing Concerned About Future Housing: No Difficulty Paying Gas/Electric Bills: No Difficulty Paying for Meds: No Currently Unemployed: No Education: High School Diploma/GED Living arrangements: with family Gender identity (if verbalized by the patient):
== END 2023-11-12 17:10 | disposition home or self-care (01) ==
PROVIDERS: Emergency Provider Nurse Practitioner; PCP Emergency Medicine
DX: N30.01 Acute cystitis with hematuria (principal); B95.1 Streptococcus, group B, as the cause of diseases classified elsewhere; I10 Essential (primary) hypertension; Z85.038 Personal history of other malignant neoplasm of large intestine
CPT/HCPCS: 81003; 87086; 99213; G0463

== ENCOUNTER 2024-01-10 12:02 | Outpatient (CLI) | payer MEDICARE, SELFPAY ==
--- NOTE | ~2024-01-10 | MM_ITS ---
EXAMINATION: MM screening lyubov BI w paulo HISTORY: Screening TECHNIQUE: Craniocaudal and mediolateral oblique 3-D tomosynthesis images were obtained and synthetic 2-D images were generated. CAD analysis was submitted and interpreted. COMPARISON: Comparison to multiple prior studies sequentially, with oldest reviewed study dated 03/29. BREAST PARENCHYMAL COMPOSITION: There are scattered areas of fibroglandular density. FINDINGS: There is no evidence of suspicious mass, calcification, or architectural distortion to sugg est malignancy in either breast. There has been no suspicious interval change. IMPRESSION: 1. No mammographic evidence of malignancy. 2. Recommend routine screening mammography in one year. BI-RADS Category 1: Negative Reviewed, dictated and finalized at location B.
== END 2024-01-10 12:03 ==
PROVIDERS: PCP Emergency Medicine; Visit Provider Emergency Medicine
DX: Z12.31 Encounter for screening mammogram for malignant neoplasm of breast (principal)
CPT/HCPCS: 77063; 77067

== ENCOUNTER 2024-03-27 08:38 | Emergency (ER) | payer MEDICARE, SELFPAY ==
[2024-03-27 08:50] VITALS: BP 141/80; PULSE 67; RESP 18; TEMP 36.2; O2SAT 98
--- NOTE | 2024-03-27 08:50 | ED.GENADULT ---
HPI - General Adult General Chief complaint: Eye Problems Stated complaint: LT eye problems Time Seen by Provider: 03/27/24 08:50 Source: patient, RN notes reviewed and old records reviewed Mode of arrival: ambulatory Limitations: no limitations History of Present Illness HPI narrative: [age] female presents to [facility] with left upper eyelid swelling, pink in color, not warm to touch. No changes since toe it started on Wednesday, 5 days. Had been using warm compresses Treatments prior to arrival: heat therapy Related Data Home Medications Medication Instructions Recorded Confirmed cetirizine 10 mg tablet (Zyrtec) 10 mg PO DAILY 08/13/22 03/27/24 timolol maleate 0.5 % eye gel 1 drp EACH EYE DAILY 08/13/22 03/27/24 forming solution acetaminophen 650 mg 650 mg PO Q12H 09/28/22 03/27/24 tablet,extended release (Tylenol Arthritis Pain) psyllium husk 0.4 gram capsule 0.4 g PO DAILY 09/28/22 03/27/24 (Metamucil) Allergies Allergy/AdvReac Type Severity Reaction Status Date / Time atenolol AdvReac Intermediate constipatio Verified 03/27/24 08:44 n metoprolol AdvReac Intermediate Dizziness Verified 03/27/24 08:44 bacitracin AdvReac Mild Rash Verified 03/27/24 08:44 codeine AdvReac Mild Rash Verified 03/27/24 08:44 lisinopril AdvReac Mild Skin Verified 03/27/24 08:44 Reaction neomycin AdvReac Mild RASH Verified 03/27/24 08:44 polymyxin B AdvReac Mild Rash Verified 03/27/24 08:44 Quinolones AdvReac Mild Rash Verified 03/27/24 08:44 Review of Systems Review of Systems: All systems reviewed & are unremarkable except as noted in HPI and below Constitutional: Constitutional: Reports no additional constitutional complaints Eyes: Eyes: Reports as per HPI, Denies blind spots, Denies blurry vision, Denies change in vision, Denies eye discharge, Denies dry eyes, Denies irritation, Denies itchy eyes and Denies eye pain ENT: Reports system reviewed and no additional complaints, except as documented Cardiovascular: Cardiovascular: Reports no additional cardiovascular complaints, Denies chest pain and Denies dyspnea Respiratory: Respiratory: Reports no additional respiratory complaints, Denies chest congestion, Denies cough and Denies dyspnea Gastrointestinal: Gastrointestinal: Reports no additional gastrointestinal complaints, Denies abdominal pain, Denies nausea and Denies vomiting Musculoskeletal: Musculoskeletal: Reports no additional musculoskeletal complaints Integumentary/Breasts: Skin/Breast: Reports system reviewed and no additional complaints, except as docu Neurologic: Reports system reviewed and no additional complaints, except as documented Psychiatric: Psychiatric: Reports no additional psychiatric complaints Allergic/Immunologic: Allergic/Immunologic: Reports no additional allergic/immunologic complaints [facility] Past Medical History Medical History Breast tumor 1977, 1980, 2002 Calculus of parotid gland (~2010) Colon cancer 2014 colectomy stage one History of stress test (~2013) Hypertension Surgical History Surgical History H/O lumpectomy History of cataract extraction (~1995) History of colectomy (~2013) History of colonoscopy (~09/02/16) History of hysterectomy (~1974) History of meniscectomy of right knee (~08/17/22) Arthroscopic Lateral Hx of breast biopsy Family History Family History Mother Hypertension Diabetes mellitus Family history of glaucoma Family history of cardiovascular disease Father Hypertension Family history of malignant melanoma Sibling Cerebrovascular accident Other Family history of allergic disorder Family history of seizure disorder Social History Social History Smoking packs per day: 1 Smoking cigarettes per day:
== END 2024-03-27 08:59 | disposition home or self-care (01) ==
PROVIDERS: Emergency Provider Nurse Practitioner; PCP Emergency Medicine
DX: H00.014 Hordeolum externum left upper eyelid (principal); Z87.891 Personal history of nicotine dependence; I10 Essential (primary) hypertension; Z85.038 Personal history of other malignant neoplasm of large intestine
CPT/HCPCS: 99213; G0463

== ENCOUNTER 2024-08-30 07:24 | Outpatient (CLI) | payer MEDICARE, SELFPAY ==
--- NOTE | ~2024-08-30 | MR_ITS ---
EXAMINATION: MR knee LT wo con DATE: 08/30/2024 08:06 INDICATION: Unilateral primary osteoarthritis, left knee. TECHNIQUE: Magnetic resonance imaging (MRI) of the left knee was performed without intravenous contra st. Sequences included axial PD-weighted FS FSE, coronal PD-weighted FSE and PD-weighted FS FSE, sagi ttal PD-weighted FSE, and sagittal T2-weighted FS FSE. COMPARISON: Left knee radiographs 08/11/2024 FINDINGS: Medial compartment: Medial meniscus is normal. There is shallow partial-thickness cartilage loss of femoral condyle, wors t at the lateral and posterior articular surface. There is cartilage surface irregularity of tibial c ondyle. Osteophytes are noted. Lateral compartment: There is a complex tear of body and posterior horn of the meniscus. There is a subchondral insufficie ncy fracture of lateral femoral condyle spanning 4.0 cm anterior to posterior by 1.4 cm left to right with up to 2 mm offset at the articular cartilage. There is partial-thickness cartilage loss of femo ral condyle, deep at the medial articular surface. There is deep partial-thickness cartilage loss of tibial condyle involving the central articular surface and full-thickness cartilage loss of tibial co ndyle involving the medial articular surface with mild subchondral edema-like marrow signal intensity . Osteophytes are noted. Patellofemoral compartment: There is partial-thickness cartilage loss of patella, deep at the medial facet and median ridge with mild subchondral edema-like signal intensity. There is shallow partial-thickness cartilage loss of tr ochlea. Ligaments and tendons: The anterior cruciate ligament is normal. The posterior cruciate ligament is normal. There are change s of partial tear of medial collateral ligament with disruption of deep fibers proximally. There are changes of prior sprain of fibular collateral ligament characterized by thickening and increased sign al intensity proximally. There is mild patellar tendinopathy. Fluid: There is a large knee joint effusion. There is a large Benitez cyst. There is mild prepatellar and supe rficial infrapatellar bursitis. IMPRESSION: 1. Subchondral insufficiency fracture of lateral femoral condyle. 2. Severe chondrosis of lateral compartment, mild chondrosis of medial compartment, and moderate tawny drosis of patellofemoral compartment. 3. Tear of lateral meniscus. 4. Large knee joint effusion. 5. Large Benitez's cyst. Reviewed, dictated and finalized at location [] [employer] IMPRESSION: 1. Subchondral insufficiency fracture of lateral femoral condyle. 2. Severe chondrosis of lateral compartment, mild chondrosis of medial compartm ent, and moderate chondrosis of patellofemoral compartment. 3. Tear of lateral meniscus. 4. Large knee joint effusion. 5. Large Benitez's cyst.
--- OUTSIDE RECORDS SUMMARY | 2024-08-31 21:15 | XMS_ITS | Patient Health Summary ---
Author Organization [facility] Address [address] [place] [address] Care Team Providers Care Chief Arson Division Name Role Phone Jose Alvarado Primary Care Provider Unavailnic e Note from [facility],non-owned Affiliates and Associated Physician Practices is amultiple site organization consisting of ambulatory clinics and hospital sitesin [place], [place] and [place]. This disclosure is being madepursuant to the Care Everywhere program and may not contain all information available regarding this patient. Last updated 18.[facility] Allergies * Bacitracin(Unknown) * Codeine(Nausea and/or Vomiting) * Molds & Smuts(Unknown) * Neomycin(Unknown) * Polymyxin B(Unknown) Medications * Be aware that medications may not be up to date on this document. Alwaysverify current medications with the patient. * timolol gel-forming (TIMOPTIC-XE) 0.5 % ophthalmic gel-forming 1 (one) drop once daily * dilTIAZem coated beads 24hr (CARDIZEM CD) 240 MG capsule(Started 04/03/2018) Take 1 (one) capsule by mouth once daily 6 refills left * cetirizine (ZyrTEC Allergy) 10 MG gel capsule Take 1 (one) capsule by mouth once daily * aspirin buffered (BUFFERIN LOW DOSE) 81 MG tablet Take 1 (one) tablet by mouth once daily * hydroCHLOROthiazide (Hydrodiuril) 12.5 MG(Started 07/07/2023) Take 1 (one) tablet by mouth once daily Active Problems Problem Noted Date Diagnosed Date Cervicalgia 06/03/2011 Immunizations * Covid Pfizer primary monovalent 12+ yr 0.3mL Purple cap(Given 05/12/2021) * INFLUENZA VACCINE(Given 05/24/2020, 05/13/2018) Social History Tobacco Use Types Packs/Day Years Used Date Smoking Tobacco: Former Cigarettes 0.5 30 0 08/09/1981 - 08/09/2011 Smokeless Tobacco: Never Tobacco Cessation:Counseling Given: Not Answered Alcohol Use Standard Drinks/Week Comments No 0 (1 standard drink = 0.6 oz pur e alcohol) Sex and Gender Information Value Date Recorded Sex Assigned at Not on file Gender Identity Not on file Sexual Orientation Not on file Last Filed Vital Signs Vital Sign Reading Time Taken Comments Blood Pressure 122/72 01/12/2024 1:34 PM CDT Pulse 66 11/06/2009 10:07 AM CDT Temperature 36.3 ??C (97.4 ??F) 01/12/2024 1:34 PM CD T Respiratory Rate 16 11/06/2009 10:0 7 AM CDT Oxygen Saturation - - Inhaled Oxygen Concentration - - Weight 66.1 kg (145 lb 12.8 oz) 01/12/2024 1:34 PM CDT Height 165.1 cm (5' 5 ) 01/12/2024 1:34 PM CDT Body Mass Index 24.26 01/12/2024 1:34 PM CDT Procedures * URINALYSIS W/MICROSCOPIC NO CULTURE(Performed 10/01/2015) * URINALYSIS MICROSCOPIC ONLY REFLEXED(Performed 10/01/2015) * CULTURE URINE COMPREHENSIVE(Performed 10/01/2015) * CULTURE URINE(Performed 03/04/2014) * FL IVP INTRAVENOUS PYELOGRAM(Performed 11/06/2009) Performed for Microscopic Hematuria * LAB HISTORICAL RESULTS-ONBASE(Performed 09/16/2008) Results * URINALYSIS MICROSCOPIC ONLY REFLEXED (10/01/2015 12:00 AM SOLID WASTE DISPOSAL MANAGER) WBC, UA None seen 0 - 5 /hpf [facility] (BEAKER) RBC UA None seen 0 - 2 /hpf [facility] (BEAKER) Epithelial Cells (non renal) None seen 0 - 10 /hpf [facility] (BEAKER) Bacteria UA None seen None seen/Few [facility] (BEAKER) 10/01/2015 10/01/2015 8:0 9 PM SOLID WASTE DISPOSAL MANAGER Narrative [facility] (BEAKER) - 10/03/2015 3:19 PM SOLID WASTE DISPOSAL MANAGER Performed at: ?? - [facility] [address] ??[id number] Inclusion Special Educator: Nick Denise PhD, Phone: ??[phone] Aguila Elizabeth MD LAB - URINALYSIS ORD ERABLES [facility] (BEAKER) * (ABNORMAL) URINALYSIS W/MICROSCOPIC NO CULTURE (10/01/2015 12:00 AM SOLID WASTE DISPOSAL MANAGER) Specific [place] 1.007 1.005 - 1.030 [facility] (BEAKER) pH Urine 6.5 5.0 - 7.5 [facility] (BEAKER) Color UA Yellow Yellow [facility] (BEAKER) Appearance Clear Clear [facility] (BEAKER) Leukocyte Esterase Negative Negative [facility] (BEAKER) Protein UA Negative Negative/Tra ce [facility] (BEAKER) Glucose UA Negative Negative [facility] (BEAKER) Ketone UA Negative Negative [facility] (BEAKER) Occult Blood 2+(A) Negative [facility] (BEAKER) Bilirubin Negative Negative [facility] (BEAKER) Urobilinogen Semi-Qn 0.2 0.2 - 1.0 mg/dL [facility] (BEAKER) Nitrite UA Negative Negative [facility] (BEAKER) Microscopic Examination See below: [facility] (BEAKER) Comment:Microscopic was amberly cated and was performed. Urine specimen (specimen) URINE SPECIMEN COLLECTION, CATHETERIZED / Unknown 10/01/2015 10/01/2015 8:09 PM SOLID WASTE DISPOSAL MANAGER Narrative [facility] (BEAKER) - 10/03/2015 3:19 PM SOLID WASTE DISPOSAL MANAGER Performed at: ??01 - [facility] [address] ??[id number] Inclusion Special Educator: Nick Denise PhD, Phone: ??[phone] Aguila Elizabeth MD LAB - URINALYSIS ORD ERABLES [facility] (SEVEN) * CULTURE URINE COMPREHENSIVE (10/01/2015 12:00 AM SOLID WASTE DISPOSAL MANAGER) Culture Urine Comprehensive Final report [facility] (SEVEN) Result 1 [facility] ([facility]) Comment:No growth in 36 - 48 hours. Urine specimen (specimen) 10/01/2015 10/01/2015 8:09 PM SOLID WASTE DISPOSAL MANAGER Narrative [facility] ([place]) - 10/03/2015 3:19 PM SOLID WASTE DISPOSAL MANAGER Preferred Lab:->[facility] Performed at: ??01 - [facility] [address] ??[id number] Inclusion Special Educator: Nick Denise PhD, Phone: ??[phone] Aguila Elizabeth MD LAB - MICROBIOLOGY O RDERABLES Performing Organization Address [facility] Co de Phone Number [facility] ([facility]) * CULTURE URINE (03/04/2014 10:39 AM CDT) Culture Urine Less than 10,000 CFU/ML of Normal Fecal Heydi [facility] Comment:. Culture Urine Greater than or Equal to 10,000 CFU/ML Normal Urogenital/ Skin Heydi [facility] Comment:. Urine specimen (specimen) URINE SPECIMEN OBTAINED BY CLEAN CATCH PROCEDURE / Unknown 03/04/2014 10:39 AM CDT 03/04/2014 8:38 PM CDT Narrative [facility] - 03/07/2014 1:46 PM CDT AndersonSpecimen#[id number] Meir Loc/Rm/Bed: EXPCARE H// CLN CATCH U Historical Provider LAB - MICROBIOLOG Y ORDERABLES [address] [phone] * IVP (11/06/2009 11:18 AM CDT) Anatomical Region Laterality Modality Abdomen Radio Fluoroscop y 11/06/2009 11:3 0 AM CDT Narrative 11/06/2009 1:04 PM CDT IVP: CLINICAL INFORMATION: ?? Microhematuria. FINDINGS: The outreach manager examination demonstrates normal psoas shadows and renal contours. No abnormal calcifications are identified. The bowel gas pattern is normal. Following intravenous contrast administration, there is normal symmetric bilateral concentration and excretion of contrast. The visualized renal calyces, infundibula and pelves are normal. The visualized ureters are normal. There is no obstruction, stricture or mucosal abnormality. The visualized bladder is normal. There is no postvoid residual. DIAGNOSIS: Normal examination. Procedure Note Bobby Lopez MD - 11/06/2009 IVP: CLINICAL INFORMATION: Microhematuria. FINDINGS: The outreach manager examination demonstrates normal psoas shadows and renal contours. No abnormal calcifications are identified. The bowel gas pattern is normal. Following intravenous contrast administration, there is normal symmetric bilateral concentration and excretion of contrast. The visualized renal calyces, infundibula and pelves are normal. The visualized ureters are normal. There is no obstruction, stricture or mucosal abnormality. The visualized bladder is normal. There is no postvoid residual. DIAGNOSIS: Normal examination. Aguila Elizabeth MD FLUOROSCOPY ORDERABL ES * LAB HISTORICAL RESULTS-ONBASE (09/16/2008) 09/16/2008 Historical Provider LAB - CHEMISTRY O RDERABLES [facility] Care Teams Chief Arson Division Relationship Specialty Start Date End Date Jose Alvarado PCP - General 07/28/23
--- OUTSIDE RECORDS SUMMARY | 2024-08-31 21:15 | XMS_ITS | Clinical Summary ---
Author Organization [facility] Address [address], [facility] [address] [place] [address] Phone Care Team Providers Care Corrosion Control Technician Name Role Phone Mark Lindo MD Primary Care Provider [phone] Se Corona DO Unavailable [phone] Allergies Active Allergy Reactions Criticality Noted Date Comments Codeine Unknown 09/11/2016 Neomycin-Bacitracin Zn-Polymyx Unknown 09/11 Medications polyethylene glycol (MIRALAX) Powder Use entire 255g bottle with 64oz of clear liquid as directed for colonoscopy prep. 255 g 0 6 Active indapamide (LOZOL) 1.25 MG Tablet Take 1.25 mg by mouth daily. 6 7 Active BYSTOLIC 10 MG Tablet Take 1 Tab by mouth daily. 0 6 Active timolol (TIMOPTIC) 0.5 % Solution Place 1 Drop in affected eye(s) nightly. 11 6 Active furosemide (LASIX) 20 MG Tablet Take 10 mg by mouth Every other day. Active Aspirin 81 MG Tablet Take 81 mg by mouth daily. Active Multiple Vitamins-Minera ls (MULTIVITAMIN PO) Take 1 Tab by mouth daily. Active Active Problems No known active problems Immunizations Immunization Administration Dates Next Due Covid-19, Mrna, Lnp-s, Pf, 30 Mcg/0.3 Ml Dose (P fizer) 10/21/2020,09/29/2020 Family History Medical History Relation Name Comments Heart Disease Brother Heart Disease Father Melanoma Father Heart Disease Mother Relation Name Status Comments Brother Father Mother Social History Tobacco Use Types Packs/Day Years Used Date Smoking Tobacco: Former Cigarettes 1 30 0 09/11/1981 - 09/11/2011 Smokeless Tobacco: Never Alcohol Use Standard Drinks/Week Comments No 0 (1 standard drink = 0.6 oz pur e alcohol) Comments Unknown Sex and Gender Information Value Date Recorded Sex Assigned at Not on file Legal Sex Female 7:52 PM CDT Gender Identity Not on file Sexual Orientation Not on file Plan of Treatment Health Maintenance Due Date Last Done Comments DEXA Bone Density 1950 Hepatitis C Virus (HCV) Screening 1950 TdaP Immunization 1950 Cologuard 2001 Immunochemical Fecal Occult Blood 2001 Mammogram 2001 Pneumococcal Immunization (50+ years) (1 of 1 - PCV) 2001 Zoster Immunization (1 of 2) 2001 Colonoscopy 04/13/2022 04/13/2019, 08/10, 06/12/2015 Colorectal Cancer Screening 04/13/2022 Influenza Immunization (#1) 04/09/202405/09, 04/17/2019, 05/12/2018, Additional history exists SARS-COV-2 Immunization ( season) 2024 12/08/2021, 05/12/2021, 10/21/2020, Additional history exists Respiratory Syncytial Virus (RSV) Immunization (Adult) (1 - 1-dose 75+ series) 2026 04/13/2019, 08/10, 06/12/2015 Hepatitis B Immunization Aged Out No longer eligible based on patient's age to complete this topic Meningococcal Immunization (ACWY) Aged Out No longer eligible based on patient's age to complete this topic Rotavirus Immunization Aged Out No lo nger eligible based on patient's age to complete this topic Procedures Procedure Name Priority Date/Time Associated Diagnosis Comments COLONOSCOPY Routine 04/13/2019 from Last 3 Months or Most Recently Relevant to Health Maintenance Results * COLONOSCOPY (04/13/2019) Se Corona DO PROCEDURE/MINOR SURGICAL ORDERA BLES Final Result from Last 3 Months or Most Recently Relevant to Health Maintenance Insurance MEDICARE C [facility] on file Care Teams Corrosion Control Technician Relationship Specialty Start Date End Date Mark Lindo MD [address] [place] [address] PCP - General Family Medicine 09/08/16 Se Corona DO [address] [place] [address] Gastroenterology 09/08/16
--- OUTSIDE RECORDS SUMMARY | 2024-08-31 21:15 | XMS_ITS | Referral Summary ---
Author Organization [facility] Address [address] [place] [address] Care Team Providers Care Flame Annealing Machine Setter Name Role Phone Jose Alvarado Primary Care Provider Unavailabl e Source Comments [facility],non-owned Affiliates and Associated Physician Practices is amultiple site organization consisting of ambulatory clinics and hospital sitesin [place], [place], [place] and [place]. This disclosure is being madepursuant to the Care Everywhere program and may not contain all information available regarding this patient. Last updated 18.[facility] [employer] Allergies Active Allergy Reactions Criticality Noted Date Comments Bacitracin Unknown 06/11/2020 Codeine Nausea and/or Vomiting 11/06/2009 Allergies per ivp questioning Molds & Smuts Unknown 06/11/2020 Neomycin Unknown 06/11/2020 Polymyxin B Unknown 06/11/2020 Medications * Be aware that medications may not be up to date on this document. Alwaysverify current medications with the patient. Medication Sig Dispensed Refills Start Date End Date Status timolol gel-forming (TIMOPTIC-XE) 0.5 % ophthalmic gel-forming 1 (one) drop once daily Active dilTIAZem coated beads 24hr (CARDIZEM CD) 240 MG capsule Take 1 (one) capsule by mouth once daily 6 04/03/2018 Active cetirizine (ZyrTEC Allergy) 10 MG gel capsule Take 1 (one) capsule by mouth once daily Active aspirin buffered (BUFFERIN LOW DOSE) 81 MG tablet Take 1 (one) tablet by mouth once daily Active hydroCHLOROthiazide (Hydrodiuril) 12.5 MG Take 1 (one) tablet by mouth once daily 07/07/2023 Active Active Problems Problem Noted Date Diagnosed Date Cervicalgia 06/03/2011 Immunizations Name Administration Dates Next Due Covid Pfizer primary monoval ent 12+ yr 0.3mL Purple cap 05/12/2021 INFLUENZA VACCINE 05/24/2020,05/13/2018 Social History Tobacco Use Types Packs/Day Years [...] Mass Index 24.26 01/12/2024 1:34 PM CDT Plan of Treatment Upcoming Encounters Date Type Department Care Team (Late st Contact Info) Description 01/11/2025 10:30 AM CDT Office Visit [facility]GE REPAIR[facility] [address] [facility] [address] [place] [address] Aguila Elizabeth Che, MD [address] [facility] [address] [place] [address] Care Teams Flame Annealing Machine Setter Relationship Specialty Start Date End Date Jose Alvarado PCP - General 07/28/23
--- OUTSIDE RECORDS SUMMARY | 2024-08-31 21:15 | XMS_ITS | Clinical Summary ---
Author Organization [facility] Address [address] [facility] [place] [address] Care Team Providers Care Producer Director Name Role Phone Jose Alvarado Primary Care Provider Unavailabl e Source Comments [facility],non-owned Affiliates and Associated Physician Practices is amultiple site organization consisting of ambulatory clinics and hospital sitesin [place], [place], [place] and [place]. This disclosure is being madepursuant to the Care Everywhere program and may not contain all information available regarding this patient. Last updated 18.[facility] [employer] Allergies Active Allergy Reactions Criticality Noted Date [...] 0.3mL Purple cap 05/12/2021 INFLUENZA VACCINE 05/24/2020,05/13/2018 Family History Medical History Relation Name Comments Hypertension Father Hypertension Mother Lupus Mother Lupus Sister Relation Name Status Comments Father Mother Sister Social History Tobacco Use Types Packs/Day Years [...] Description 01/11/2025 10:30 AM CDT Office Visit [facility] - LCSW [address], [facility] [address] [place] [address] Aguila Elizabeth Che, MD [address] [facility] [address] [place] [address] Health Maintenance Due Date Last Done Comments BONE DENSITY TESTING 1950 COLOGUARD (AGES 45-75) - COLON CA SCREENING 1950 COLON MONITORING 1951 COLONOSCOPY - COLON CA SCREENING 1950 CT COLONOGRAPHY - COLON CA SCREENING 1950 Colorectal Cancer Screening 1950 FIT - COLON CA SCREENING 1951 FLEX SIG - COLON CA SCREENING 1951 LIPID TESTING 1950 MAMMOGRAM 1950 HEPATITIS C SCREENING 05/01/1969 DTAP/TDAP/TD VACCINES (1 - Tdap) 1970 PNEUMOCOCCAL VACCINE 50+ (1 of 1 - PCV) 2001 ZOSTER VACCINE (1 of 2) 2001 COVID-19 VACCINE (4 - season) 2024 05/12/2021, 10/21/2020, 09/29/2020 INFLUENZA VACCINE (#1) 2024 , 05/24/2020, 04/17/2019, Additional history exists DEPRESSION SCREENING 08/09/2024 MEDICARE AWV ? CALENDAR YEAR 2024 Respiratory Syncytial Virus (RSV) Vaccine Pt: or over 60 yrs (1 - 1-dose 75+ series) 2026 HEPATITIS B VACCINE Aged Out No longe r eligible based on patient's age to complete this topic HIB VACCINE Aged Out No longer eligi ble based on patient's age to complete this topic HPV VACCINE Aged Out No longer eligi ble based on patient's age to complete this topic MENINGOCOCCAL (Group B) VACCINE Aged Out No longer eligible based on patient's age to complete this topic MENINGOCOCCAL VACCINE Aged Out No chelsea edith eligible based on patient's age to complete this topic Care Teams Producer Director Relationship Specialty Start Date End Date Jose Alvarado PCP - General 07/28/23
== END 2024-08-30 07:25 | disposition home or self-care (01) ==
PROVIDERS: PCP Nurse Practitioner Family; Visit Provider Orthopaedic Surgery
DX: M17.12 Unilateral primary osteoarthritis, left knee (principal); S72.422A Displaced fracture of lateral condyle of left femur, initial encounter for closed fracture; S83.282A Other tear of lateral meniscus, current injury, left knee, initial encounter; X58.XXXA Exposure to other specified factors, initial encounter; M94.262 Chondromalacia, left knee; M25.462 Effusion, left knee; M71.22 Synovial cyst of popliteal space [Baker], left knee
CPT/HCPCS: 73721

== ENCOUNTER 2024-09-22 09:11 | Outpatient (CLI) | payer MEDICARE, SELFPAY ==
--- OUTSIDE RECORDS SUMMARY | 2024-09-22 09:17 | XMS_ITS | Patient Health Summary ---
Author Organization [facility] Address [address] [facility] [place] [address] Care Team Providers Care Die Machine Operator Name Role Phone Jose Alvarado Primary Care Provider Unavailnic e Note from [facility],non-owned Affiliates and Associated Physician Practices is amultiple site organization consisting of ambulatory clinics and hospital sitesin [place], [place], [place] and [place]. This disclosure is being madepursuant to the Care Everywhere program and may not contain all information available regarding this patient. Last updated 18.[facility] Allergies * Bacitracin(Unknown) * Codeine(Nausea [...] 66 11/06/2009 10:07 AM CDT Temperature 36.3 C (97.4 F) 01/12/2024 1:34 PM CDT Respiratory Rate 16 11/06/2009 10:0 7 AM [...] URINALYSIS MICROSCOPIC ONLY REFLEXED (10/01/2015 12:00 AM COILED TUBING OPERATOR) WBC, UA None seen 0 - 5 /hpf [facility] (BEAKER) RBC UA None seen 0 - 2 /hpf [facility] (BEAKER) Epithelial Cells (non renal) None seen 0 - 10 /hpf [facility] (BEAKER) Bacteria UA None seen None seen/Few [facility] (BEAKER) 10/01/2015 10/01/2015 8:0 9 PM COILED TUBING OPERATOR Narrative [facility] (BEAKER) - 10/03/2015 3:19 PM COILED TUBING OPERATOR Performed at: [facility] [id number] Special Educator: Nick Denise PhD, Phone: [phone] Aguila Elizabeth MD LAB - URINALYSIS ORD ERABLES [facility] (BEAKER) * (ABNORMAL) URINALYSIS W/MICROSCOPIC NO CULTURE (10/01/2015 12:00 AM COILED TUBING OPERATOR) Specific [place] 1.007 1.005 - 1.030 [facility] (BEAKER) [...] [facility] (BEAKER) Microscopic Examination See below: [facility] (BEAKER) Comment:Microscopic was amberly cated and was performed. Urine specimen (specimen) URINE SPECIMEN COLLECTION, CATHETERIZED / Unknown 10/01/2015 10/01/2015 8:09 PM COILED TUBING OPERATOR Narrative [facility] (BEAKER) - 10/03/2015 3:19 PM COILED TUBING OPERATOR Performed at: - [facility] [id number] Special Educator: Nick Denise PhD, Phone: [phone] Aguila Elizabeth MD LAB - URINALYSIS ORD ERABLES Performing Organization Address City/[facility]/ZIP Co de Phone Number [facility] ([facility]) * CULTURE URINE COMPREHENSIVE (10/01/2015 12:00 AM COILED TUBING OPERATOR) Culture Urine Comprehensive Final report [facility] Result 1 [facility] Comment:No growth in 36 - 48 hours. Urine specimen (specimen) 10/01/2015 10/01/2015 8:09 PM COILED TUBING OPERATOR Narrative [facility] ([facility]) - 10/03/2015 3:19 PM COILED TUBING OPERATOR Preferred Lab:->[facility] Performed at: - [facility] [id number] Special Educator: Nick Denise PhD, Phone: [phone] Aguila Elizabeth MD LAB - MICROBIOLOGY O RDERABLES Performing Organization Address [facility] Co de Phone Number [facility] ([facility]) * CULTURE URINE (03/04/2014 10:39 AM CDT) Culture Urine Less than 10,000 CFU/ML of Normal Fecal Heydi [facility] Comment:. Culture Urine Greater than or Equal to 10,000 CFU/ML Normal Urogenital/ Skin Heydi [facility] Comment:. Urine specimen (specimen) URINE SPECIMEN OBTAINED BY CLEAN CATCH PROCEDURE / Unknown 03/04/2014 10:39 AM CDT 03/04/2014 8:38 PM CDT Narrative [facility] - 03/07/2014 1:46 PM CDT AndersonSpecimen#[id number] Meir Loc/Rm/Bed: EXPCARE H// CLN CATCH U Historical Provider LAB - MICROBIOLOG Y ORDERABLES Performing Organization Address [facility]/ZIP Co de Phone Number [address] [phone] * IVP (11/06/2009 11:18 AM CDT) Anatomical Region Laterality Modality Abdomen Radio Fluoroscop y 11/06/2009 11:3 0 AM CDT Narrative 11/06/2009 1:04 PM CDT IVP: CLINICAL INFORMATION: Microhematuria. FINDINGS: The grease rack worker examination demonstrates normal psoas shadows and renal [...] 11/06/2009 IVP: CLINICAL INFORMATION: Microhematuria. FINDINGS: The grease rack worker examination demonstrates normal psoas shadows and renal [...] is no postvoid residual. DIAGNOSIS: Normal examination. [facility] Aileen Elizabeth MD FLUOROSCOPY ORDERABL ES * LAB HISTORICAL RESULTS-ONBASE (09/16/2008) 09/16/2008 Historical Provider LAB - CHEMISTRY O RDERABLES Performing Organization Address City/State/[facility] Co de Phone Number [facility] Care Teams Die Machine Operator Relationship Specialty Start Date End Date Jose Alvarado PCP - General 07/28/23
--- OUTSIDE RECORDS SUMMARY | 2024-09-22 09:17 | XMS_ITS | Clinical Summary ---
Author Organization [facility] Address [address] [facility] [place] [address] Care Team Providers Care Glass Designer Name Role Phone Jose Alvarado Primary Care Provider Unavailabl e Source Comments [facility],non-owned Affiliates and Associated Physician Practices is amultiple site organization consisting of ambulatory clinics and hospital sitesin [place], [place], [place]. This disclosure is being madepursuant to the Care Everywhere program and may not contain all information available regarding this patient. Last updated 18.[facility] [employer] Allergies Active Allergy Reactions Criticality Noted Date [...] Description 01/11/2025 10:30 AM CDT [facility] AUTOMATED ACCESS SYSTEMS TECHNICIAN [address], [facility] [address] [place] [address] Aguila Elizabeth Che, MD [address] [facility] [address] [place] [address] Health Maintenance Due Date Last [...] history exists DEPRESSION SCREENING 08/09/2024 MEDICARE AWV CALENDAR YEAR 2024 Respiratory Syncytial Virus (RSV) [...] age to complete this topic Care Teams Glass Designer Relationship Specialty Start Date End Date Mcallen, Garcia PCP - General 07/28/23
--- OUTSIDE RECORDS SUMMARY | 2024-09-22 09:17 | XMS_ITS | Referral Summary ---
Author Organization [facility] Address [address] [facility] [place] [address] Care Team Providers Care Lead Relay Tester Name Role Phone Jose Alvarado Primary Care Provider Unavailabl e Source Comments [facility],non-owned Affiliates and Associated Physician Practices is amultiple site organization consisting of ambulatory clinics and hospital sitesin [place], [place], [place] and [place]. This disclosure is being madepursuant to the Care Everywhere program and may not contain all information available regarding this patient. Last updated 18.[facility] Shape Collage Allergies Active Allergy Reactions Criticality Noted Date [...] Description 01/11/2025 10:30 AM CDT Office Visit [facility] - DIRECTOR OF EMERGENCY NURSING [address], [facility] [address] [place] [address] Aguila Elizabeth Che, MD [address] [facility] [facility] [address] [place] [address] Care Teams Lead Relay Tester Relationship Specialty Start Date End Date Jose Alvarado PCP - General 07/28/23
--- OUTSIDE RECORDS SUMMARY | 2024-09-22 09:17 | XMS_ITS | Clinical Summary ---
Author Organization [facility] Address [address], [facility] [address] [place] [address] Phone Care Team Providers Care Ship Self Defense System Mk1 Operator Name Role Phone Mark Lindo MD Primary Care Provider [phone] Se Corona DO Unavailable [phone] Allergies Active Allergy Reactions Criticality Noted [...] Relevant to Health Maintenance Insurance MEDICARE C [facility] on file Care Teams Ship Self Defense System Mk1 Operator Relationship Specialty Start Date End Date Mark Lindo MD [address] [place] [address] PCP - General Family Medicine 09/08/16 Se Corona DO [address] [place] [address] Gastroenterology 09/08/16
--- NOTE | 2024-09-22 09:27 | ECG_ITS ---
Test Date: 2024-09-22 09:33:08 Measurements Intervals [place] Rate: 64 P: 54 KS: 154 QRS: 2 QRSD: 93 T: 31 QT: 379 QTc: 393 Interpretive Statements SINUS RHYTHM WITH SINUS ARRHYTHMIA BORDERLINE ST ABNORMALITY- LATERAL LEADS BASELINE ARTIFACT- I, II, AVR BORDERLINE ECG No previous ECG available for comparison Electronically Signed On 09-22-2024 10:02:43 CHICKEN CATCHER by Juice Gill D.O.
== END 2024-09-22 09:12 | disposition home or self-care (01) ==
LOC: ANHIMG 09:13 → ANHCARD 09:14
PROVIDERS: PCP Nurse Practitioner Family; Visit Provider Orthopaedic Surgery
DX: R94.31 Abnormal electrocardiogram [ECG] [EKG] (principal); I10 Essential (primary) hypertension
CPT/HCPCS: 93005

== ENCOUNTER 2024-09-28 08:48 | Outpatient (CLI) | payer MEDICARE, SELFPAY ==
--- OUTSIDE RECORDS SUMMARY | 2024-09-28 09:03 | XMS_ITS | Clinical Summary ---
Author Organization [facility] Address [address] [facility] [place] [address] Care Team Providers Care Pin Machine Tender Name Role Phone Jose Alvarado Primary Care Provider Unavailabl e Source Comments [facility],non-owned Affiliates and Associated Physician Practices is amultiple site organization consisting of ambulatory clinics and hospital sitesin [place], [place], [place] and [place]. This disclosure is being madepursuant to the Care Everywhere program and may not contain all information available regarding this patient. Last updated 18.[facility] [employer] Allergies Active Allergy Reactions Criticality Noted Date [...] Description 01/11/2025 10:30 AM CDT [facility] - MEDICAL LEADER [address], [place] [address] [place] [address] Aguila Elizabeth Che, MD [address] [facility] [address] [place] [address] Health Maintenance Due Date Last [...] age to complete this topic Care Teams Pin Machine Tender Relationship Specialty Start Date End Date [place], Garcia PCP - General 07/28/23
--- OUTSIDE RECORDS SUMMARY | 2024-09-28 09:03 | XMS_ITS | Clinical Summary ---
Author Organization [facility] Address [address], [facility] [address] [place] [address] Phone Care Team Providers Care Rigger Chief Name Role Phone Mark Lindo MD Primary Care Provider Se Corona DO Unavailable [phone] Allergies Active Allergy Reactions Criticality Noted [...] Relevant to Health Maintenance Insurance MEDICARE C [facility] on file Care Teams Rigger Chief Relationship Specialty Start Date End Date Mark Lindo MD [address] [place] [address] PCP - General Family Medicine 09/08/16 Se Corona DO [address] [place] [address] Gastroenterology 09/08/16
--- OUTSIDE RECORDS SUMMARY | 2024-09-28 09:03 | XMS_ITS | Patient Health Summary ---
Author Organization [facility] Address [address] [facility] [place] [address] Care Team Providers Care Lead Developer Name Role Phone Jose Alvarado Primary Care Provider Unavailnic e Note from [facility],non-owned Affiliates and Associated Physician Practices is amultiple site organization consisting of ambulatory clinics and hospital sitesin [place], [place], [place] and [place]. This disclosure is being madepursuant to the Care Everywhere program and may not contain all information available regarding this patient. Last updated 18.[facility] Allergies * Bacitracin(Unknown) * Codeine(Nausea and/or [...] URINALYSIS MICROSCOPIC ONLY REFLEXED (10/01/2015 12:00 AM [employer] SALES ENGINEER) WBC, UA None seen 0 - 5 /hpf [facility] (BEAKER) RBC UA None seen 0 - 2 /hpf [facility] (BEAKER) Epithelial Cells (non renal) None seen 0 - 10 /hpf [facility] (BEAKER) Bacteria UA None seen None seen/Few [facility] (BEAKER) 10/01/2015 10/01/2015 8:0 9 PM [employer] SALES ENGINEER Narrative [facility] (BEAKER) - 10/03/2015 3:19 PM [employer] SALES ENGINEER Performed at: [address] [id number] Acoustical Installer: Nick Denise PhD, Phone: [phone] Aguila Elizabeth MD LAB - URINALYSIS ORD ERABLES [facility] (BEAKER) * (ABNORMAL) URINALYSIS W/MICROSCOPIC NO CULTURE (10/01/2015 12:00 AM [employer] SALES ENGINEER) Specific [place] 1.007 1.005 - 1.030 [facility] (BEAKER) [...] CATHETERIZED / Unknown 10/01/2015 10/01/2015 8:09 PM [employer] SALES ENGINEER Narrative [facility] (BEAKER) - 10/03/2015 3:19 PM [employer] SALES ENGINEER Performed at: - [address] [id number] Acoustical Installer: Nick Denise PhD, Phone: [phone] Aguila Elizabeth MD LAB - URINALYSIS ORD ERABLES Performing Organization Address City/[facility]/ZIP Co de Phone Number [facility] ([facility]) * CULTURE URINE COMPREHENSIVE (10/01/2015 12:00 AM [employer] SALES ENGINEER) Culture Urine Comprehensive Final report [facility] ([facility] Result 1 [facility] ([facility] Comment:No growth in 36 - 48 hours. Urine specimen (specimen) 10/01/2015 10/01/2015 8:09 PM [employer] SALES ENGINEER Narrative [facility] ([facility]) - 10/03/2015 3:19 PM [employer] SALES ENGINEER Preferred Lab:->[facility] Performed at: - [address] [id number] Acoustical Installer: Nick Denise PhD, Phone: [phone] Aguila Elizabeth MD LAB - MICROBIOLOGY O RDERABLES Performing Organization Address [facility] Co de Phone Number [facility] ([facility]) * CULTURE URINE (03/04/2014 10:39 AM CDT) Culture Urine Less than 10,000 CFU/ML of Normal Fecal Heydi [facility] Comment:. Culture Urine Greater than or Equal to 10,000 CFU/ML Normal Urogenital/ Skin Heydi [facility] Comment:. Urine specimen (specimen) URINE SPECIMEN OBTAINED BY CLEAN CATCH PROCEDURE / Unknown 03/04/2014 10:39 AM CDT 03/04/2014 8:38 PM CDT Narrative [facility] - 03/07/2014 1:46 PM CDT AndersonSpecimen#[id number] Meir Loc/Rm/Bed: EXPCARE H// CLN CATCH U Historical Provider LAB - MICROBIOLOG Y ORDERABLES Performing Organization Address [facility]/ZIP Co de Phone Number [address] [phone] * IVP (11/06/2009 11:18 AM CDT) Anatomical Region Laterality Modality Abdomen Radio Fluoroscop y 11/06/2009 11:3 0 AM CDT Narrative 11/06/2009 1:04 PM CDT IVP: CLINICAL INFORMATION: Microhematuria. FINDINGS: The social worker health services examination demonstrates normal psoas shadows and renal [...] 11/06/2009 IVP: CLINICAL INFORMATION: Microhematuria. FINDINGS: The social worker health services examination demonstrates normal psoas shadows and renal [...] is no postvoid residual. DIAGNOSIS: Normal examination. [facility] Aileen Elizabeth MD FLUOROSCOPY ORDERABL ES * LAB HISTORICAL RESULTS-ONBASE (09/16/2008) 09/16/2008 Historical Provider LAB - CHEMISTRY O RDERABLES Performing Organization Address City/State/[facility] Co de Phone Number [facility] Care Teams Lead Developer Relationship Specialty Start Date End Date Jose Alvarado PCP - General 07/28/23
--- OUTSIDE RECORDS SUMMARY | 2024-09-28 09:03 | XMS_ITS | Referral Summary ---
Author Organization [facility] Address [address] [place] [address] Care Team Providers Care Vp Of Digital Marketing Name Role Phone Jose Alvarado Primary Care Provider Unavailabl e Source Comments [facility],non-owned Affiliates and Associated Physician Practices is amultiple site organization consisting of ambulatory clinics and hospital sitesin [place], [place], [place] and [place]. This disclosure is being madepursuant to the Care Everywhere program and may not contain all information available regarding this patient. Last updated 18.[facility] [employer] Allergies Active Allergy Reactions Criticality Noted Date [...] CDT Office Visit [facility] - DUMP MOTORMAN [address], [facility] [address] [place] [address] Aguila Elizabeth Che, MD [address] [facility] [address] [place] [address] Care Teams Vp Of Digital Marketing Relationship Specialty Start Date End Date Jose Alvarado PCP - General 07/28/23
[2024-09-28 10:54] LABS: Hemoglobin A1C 5.9 % (<5.7)
[2024-09-28 11:26] LABS: Urine Cotinine NEGATIVE
[2024-09-28 11:49] LABS: MRSA (PCR) NOT DETECTED (NOT DETECTE)
== END 2024-09-28 08:49 | disposition home or self-care (01) ==
LOC: ANHSURGERY 08:52
PROVIDERS: PCP Nurse Practitioner Family; Visit Provider Orthopaedic Surgery
DX: M17.2 Bilateral post-traumatic osteoarthritis of knee (principal)
CPT/HCPCS: 80307; 83036; 86850; 86900; 86901; 87641

== ENCOUNTER 2024-10-03 16:15 | Inpatient (IN) | payer MEDICARE, SELFPAY ==
[2024-09-28 09:13] VITALS: BP 158/81; PULSE 65; RESP 16; TEMP 36.9; O2SAT 97; BMI 24.7
--- NOTE | 2024-09-28 09:35 | PC.NURSE ---
Report to the Outpatient Waiting Room, entrance under the green pavilion located off [facility], at time ___10:00AM____ on date ___10/02/24____. Planned Procedure Time: ___12:00PM .? Time changes happen often and if your time is changed the preop area will call you the afternoon before. - You and your visitor will be asked to self-screen and do not enter if you have any COVID symptoms. Please call surgeon if you need to reschedule. - A mask is optional within the hospital at this time. Patients may have clear liquids (water, carbonated beverages, clear teas, apple juice) until 3 hours prior to surgery (9:00AM) with a maximum of 20 ounces. - No food from midnight until time of surgery and no smoking, or chewing tobacco (or any form of nicotine). No chewing gum, candy or mints. Take only the following medications with a SIP of water on the morning of surgery: ____DILTIAZEM, TIMOLOL. TRAMADOL NEEDED FOR PAIN DO NOT STOP ANY OF YOUR OTHER PRESCRIPTION MEDICATIONS PRIOR TO SURGERY EXCEPT THE FOLLOWING Hold all vitamins and supplements for 3 days per anesthesiologist.-09/28/24 Medications to discontinue per physician __HOLD MELOXICAM 7 DAYS PRE-OP PER DR MAZARIEGOS Date to take last dose 09/24/24 Please no make-up, nail comoran, hairspray, perfume, deodorant, or body powder the day of surgery.? No jewelry (including any body piercings) or valuables the day of surgery, leave them at home.? Please take a shower or bath the night before, or the morning of, surgery with an antibacterial soap.? Wear comfortable, loose fitting clothing.? - Jewelry must be removed prior to entering the operating room.? Rings and piercings that are not removed may be cut off. - The hospital will not accept responsibility for valuables.? - Please leave all valuables, including medications, at home the day of surgery. If you are going home after surgery, a licensed helper/driver must drive you home.? - NO public transportation without another adult if you receive anesthesia. - We recommend that an adult stay with you for 24 hours following discharge. - We also recommend that you do not drive, make important decision, drink alcoholic beverages, or take any drugs that were not prescribed by your health care provider for at least 24 hours after your discharge time. Follow any additional instructions given to you from your surgeon. Telephone instructions given to ___PATIENT & HUSB and asked if any additional questions and then verbalized understanding. Patient advised to call surgeon office or pre surgery nurse liaison [phone] if any additional questions.
[2024-10-02] VITALS (14 sets, daily range): BP systolic 130–176; BP diastolic 72–97; PULSE 74–106; RESP 16–20; TEMP 36.7–37.1; O2SAT 92–98
--- OUTSIDE RECORDS SUMMARY | 2024-10-02 01:51 | XMS_ITS | Clinical Summary ---
Author Organization [facility] Address [address], [facility] [address] [place] [address] Phone Care Team Providers Care Web Development Manager Name Role Phone Mark Lindo MD Primary Care Provider Se Corona DO Unavailable [phone] Allergies Active Allergy Reactions Criticality Noted [...] Relevant to Health Maintenance Insurance MEDICARE C [facility] on file Care Teams Web Development Manager Relationship Specialty Start Date End Date Mark Lindo MD [address] [place] [address] PCP - General Family Medicine 09/08/16 Se Corona DO [address] [place] [address] Gastroenterology 09/08/16
--- OUTSIDE RECORDS SUMMARY | 2024-10-02 01:51 | XMS_ITS | Clinical Summary ---
Author Organization [facility] Address [address] [place] [address] Care Team Providers Care Advanced Manufacturing Technician Name Role Phone Jose Alvarado Primary Care Provider Unavailabl e Source Comments [facility],non-owned Affiliates and Associated Physician Practices is amultiple site organization consisting of ambulatory clinics and hospital sitesin [place], [place], [place] and [place]. This disclosure is being madepursuant to the Care Everywhere program and may not contain all information available regarding this patient. Last updated 18.[facility] [employer] Allergies Active Allergy Reactions Criticality Noted Date [...] Description 01/11/2025 10:30 AM CDT [facility] ART PSYCHOTHERAPIST [address], [facility] [address] [place] [address] Aguila Elizabeth Che, MD [address] [facility] [address] [place] [address] Health Maintenance Due Date Last [...] age to complete this topic Care Teams Advanced Manufacturing Technician Relationship Specialty Start Date End Date [place], Garcia PCP - General 07/28/23
--- OUTSIDE RECORDS SUMMARY | 2024-10-02 01:51 | XMS_ITS | Referral Summary ---
Author Organization [facility] Address [address] [facility] [place] [address] Care Team Providers Care Nursing Center Tutor Name Role Phone Jose Alvarado Primary Care Provider Unavailabl e Source Comments [facility],non-owned Affiliates and Associated Physician Practices is amultiple site organization consisting of ambulatory clinics and hospital sitesin [place], [place], [place] and [place]. This disclosure is being madepursuant to the Care Everywhere program and may not contain all information available regarding this patient. Last updated 18.[facility] [employer] Allergies Active Allergy Reactions Criticality Noted Date [...] CDT Office Visit [facility] - PACKING ATTENDANT [address], [facility] [address] [place] [address] Aguila Elizabeth Che, MD [address] [facility] [address] [place] [address] Care Teams Nursing Center Tutor Relationship Specialty Start Date End Date Jose Alvarado PCP - General 07/28/23
--- OUTSIDE RECORDS SUMMARY | 2024-10-02 01:51 | XMS_ITS | Patient Health Summary ---
Author Organization [facility] Address [address] [place] [address] Care Team Providers Care Medical Administrative Assistant Name Role Phone Jose Alvarado Primary Care Provider Unavailnic e Note from [facility],non-owned Affiliates and Associated Physician Practices is amultiple site organization consisting of ambulatory clinics and hospital sitesin [place], [place], [place] and [place]. This disclosure is being madepursuant to the Care Everywhere program and may not contain all information available regarding this patient. Last updated 18.[facility] Allergies * Bacitracin(Unknown) * [...] URINALYSIS MICROSCOPIC ONLY REFLEXED (10/01/2015 12:00 AM INSOLE DEPARTMENT WORKER) WBC, UA None seen 0 - 5 /hpf [facility] (BEAKER) RBC UA None seen 0 - 2 /hpf [facility] (BEAKER) Epithelial Cells (non renal) None seen 0 - 10 /hpf [facility] (BEAKER) Bacteria UA None seen None seen/Few [facility] (BEAKER) 10/01/2015 10/01/2015 8:0 9 PM INSOLE DEPARTMENT WORKER Narrative [facility] (BEAKER) - 10/03/2015 3:19 PM INSOLE DEPARTMENT WORKER Performed at: [address] [id number] Hand Sander: Nick Denise PhD, Phone: [phone] Aguila Elizabeth MD LAB - URINALYSIS ORD ERABLES [facility] (BEAKER) * (ABNORMAL) URINALYSIS W/MICROSCOPIC NO CULTURE (10/01/2015 12:00 AM INSOLE DEPARTMENT WORKER) Specific [place] 1.007 1.005 - 1.030 [facility] (BEAKER) [...] CATHETERIZED / Unknown 10/01/2015 10/01/2015 8:09 PM INSOLE DEPARTMENT WORKER Narrative [facility] (BEAKER) - 10/03/2015 3:19 PM INSOLE DEPARTMENT WORKER Performed at: - [address] [id number] Hand Sander: Nick Denise PhD, Phone: [phone] Aguila Elizabeth MD LAB - URINALYSIS ORD ERABLES Performing Organization Address City/[facility]/ZIP Co de Phone Number [facility] ([facility]) * CULTURE URINE COMPREHENSIVE (10/01/2015 12:00 AM INSOLE DEPARTMENT WORKER) Culture Urine Comprehensive Final report [facility] ([facility] Result 1 [facility] ([facility] Comment:No growth in 36 - 48 hours. Urine specimen (specimen) 10/01/2015 10/01/2015 8:09 PM INSOLE DEPARTMENT WORKER Narrative [facility] ([facility]) - 10/03/2015 3:19 PM INSOLE DEPARTMENT WORKER Preferred Lab:->[facility] Performed at: - [address] [id number] Hand Sander: Nick Denise PhD, Phone: [phone] Aguila Elizabeth MD LAB - MICROBIOLOGY O RDERABLES Performing Organization Address [facility] Co de Phone Number [facility] ([facility]) * CULTURE URINE (03/04/2014 10:39 AM CDT) Culture Urine Less than 10,000 CFU/ML of Normal Fecal Heydi [facility] Comment:. Culture Urine Greater than or Equal to 10,000 CFU/ML Normal Urogenital/ Skin Heydi [facility] Comment:. Urine specimen (specimen) URINE SPECIMEN OBTAINED BY CLEAN CATCH PROCEDURE / Unknown 03/04/2014 10:39 AM CDT 03/04/2014 8:38 PM CDT Narrative [facility] - 03/07/2014 1:46 PM CDT AndersonSpecimen#[id number] Meir Loc/Rm/Bed: EXPCARE H// CLN CATCH U Historical Provider LAB - MICROBIOLOG Y ORDERABLES Performing Organization Address [facility]/ZIP Co de Phone Number [address] [phone] * IVP (11/06/2009 11:18 AM CDT) Anatomical Region Laterality Modality Abdomen Radio Fluoroscop y 11/06/2009 11:3 0 AM CDT Narrative 11/06/2009 1:04 PM CDT IVP: CLINICAL INFORMATION: Microhematuria. FINDINGS: The whiting can worker examination demonstrates normal psoas shadows and [...] 11/06/2009 IVP: CLINICAL INFORMATION: Microhematuria. FINDINGS: The whiting can worker examination demonstrates normal psoas shadows and [...] is no postvoid residual. DIAGNOSIS: Normal examination. [facility] Aileen Elizabeth MD FLUOROSCOPY ORDERABL ES * LAB HISTORICAL RESULTS-ONBASE (09/16/2008) 09/16/2008 Historical Provider LAB - CHEMISTRY O RDERABLES Performing Organization Address City/State/[facility] Co de Phone Number [facility] Care Teams Medical Administrative Assistant Relationship Specialty Start Date End Date Jose Alvarado PCP - General 07/28/23
[2024-10-02] MEDS: ACETAMINOPHEN 500 MG TABLET 1000 MG PO (10:58)
[2024-10-02] MEDS: TRANEXAMIC ACID 1,000MG/ISO100 1,000 MG/100 ML BAG 200 MG IVPB (11:40)
--- NOTE | 2024-10-02 11:40 | P.PNAN_ITS ---
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 Patient Data Age: 74 Gender: F Height: 1.65 m Weight: 67 kg Last Vital Signs Temp 98.7 F 10/02/24 10:15 Pulse 74 10/02/24 10:15 Resp 16 10/02/24 10:15 BP 159/79 H 10/02/24 10:15 Pulse Ox 98 10/02/24 10:15 O2 Del Method Room Air 10/02/24 10:15 Allergies Allergy/AdvReac Type Severity Reaction Status Date / Time bacitracin AdvReac Mild Rash Verified 10/02/24 10:28 codeine AdvReac Mild ABD PAIN, Verified 10/02/24 10:28 NAUSEA neomycin AdvReac Mild RASH Verified 10/02/24 10:28 polymyxin B AdvReac Mild Rash Verified 10/02/24 10:28 Home Medications ?Medication ?Instructions ?Recorded ?Confirmed ?Type timolol maleate 0.5 % eye gel 1 drp EACH EYE DAILY 08/13/22 09/28/24 History forming solution acetaminophen 650 mg 1,300 mg PO Q12H PRN pain 09/28/22 09/28/24 History tablet,extended release (Tylenol Arthritis Pain) psyllium husk 0.4 gram capsule 0.4 g PO DAILY 09/28/22 09/28/24 History (Metamucil) cholecalciferol (vitamin D3) 50 See Rx Instructions .Route 07/13/24 09/28/24 Rx mcg (2,000 unit) capsule .COMPLEX #90 caps diltiazem HCl 240 mg See Rx Instructions .Route 07/13/24 09/28/24 Rx capsule,extended release 24 hr .COMPLEX #90 caps hydrochlorothiazide 25 mg tablet 25 mg PO QAM #90 tabs 07/13/24 09/28/24 Rx acetaminophen 500 mg tablet 1,000 mg PO Q6H PRN pain 09/28/24 09/28/24 History (Acetaminophen Extra Strength) fluticasone propionate 50 2 spray intranasal DAILY PRN nasal 09/28/24 09/28/24 History mcg/actuation nasal congestion spray,suspension (24 Hour Allergy Relief) meloxicam 15 mg tablet 15 mg PO DAILY 09/28/24 09/28/24 History tramadol 50 mg tablet 50 mg PO Q8H PRN pain 09/28/24 09/28/24 History Patient hx anesthesia problems: none Family hx anesthesia problems: none Results Review: All pre-operative results and documents have been reviewed as part of the pre-operative evaluation. [facility] Past Medical History Medical History Sebaceous cyst Orthopedic aftercare Hypertension Complex tear of lateral meniscus of right knee Hepatic cyst Needs periodic surveillance with CT or MRI Colon cancer 2014 colectomy stage one History of stress test (~2013) Right knee DJD Lipoma Breast tumor 1977, 1980, 2002 Calculus of parotid gland (~2010) Surgical History Surgical History History of meniscectomy of right knee (~08/17/22) Arthroscopic Lateral H/O lumpectomy Hx of breast biopsy History of hysterectomy (~1974) History of cataract extraction (~1995) History of colectomy (~2013) History of colonoscopy (~09/02/16) Family History Family History Mother Hypertension Diabetes mellitus Family history of glaucoma Family history of cardiovascular disease Father Hypertension Family history of malignant melanoma Sibling Cerebrovascular accident Other Family history of allergic disorder Family history of seizure disorder Social History Social History Smoking packs per day: 1 Smoking cigarettes per day: 20.0 Years smoked: 40 Smoking pack-years: 40.00 Smoking status: Former smoker Tobacco type: cigarettes Smoking end date: 08/09/11 Alcohol intake: unknown Substance use: never Substance use type: does not use Lack of Transportation: No Lack of Food: Never True Current Housing: I Have Housing Concerned About Future Housing: No Difficulty Paying Gas/Electric Bills: No Difficulty Paying for Meds: No Currently Unemployed: No Education: High School Diploma/GED Living arrangements: with family Additional living arrangements comments: [facility] Gender identity (if verbalized by the patient): Female Sexual Orientation (if Verbalized by the Patient): Straight or Heterosexual Spiritual care concerns: No Anes - Eval Final PreProcedure Day of Procedure 10/02/24 11:40 Patient weight: normal Lungs: normal air movement Airway: Mallampati scale class II and special considerations (Upper and lower partial/dentures. ) Neurological: alert and oriented Last oral intake: >/= 8 hours ASA classification: III Emergent: no Anesthetic plan: proceed Anesthesia type and monitoring: general LMA and standard monitoring Results Review: All pre-operative results and documents have been reviewed as part of the pre- operative evaluation. HTN, noted borderline hyperlipidemia, no meds. Pt can walk short distances, no cp or sob. Informed Consent: The patient's anesthetic plan and its attendant risks and benefits were discussed with the patient/family/POA. Questions were solicited and answers provided to the satisfaction of the patient/family/POA.
--- NOTE | 2024-10-02 11:55 | WPDHPUPDATE1 ---
History and Physical Update Update Date/Time: 10/02/24 11:55 History and Physical has been reviewed, including an updated exam of the patient. There are NO changes in the patient's condition. Risks, benefits, and alternatives have been discussed and questions answered. Patient agrees to proceed with procedure.
[2024-10-02] MEDS: ceFAZolin 2 GM/D5W 50 ML 2 GM/50 ML BAG IVPB ×2 (12:08→21:19)
[2024-10-02] MEDS: SODIUM CHLORIDE 0.9% IV 37.7 ML, MORPHINE SULFATE INJ (*CRX) 2 MG, ROPivacaine HCL 1% 2... INFILTRATE (12:43)
[2024-10-02] MEDS: TRANEXAMIC ACID 1,000 MG/10 ML AMPUL 1000 MG IV PUSH (14:11)
[2024-10-02] MEDS: LACTATED RINGERS 1,000 ML 30 ML IV CONT ×2 (14:37)
--- NOTE | 2024-10-02 14:37 | W.PM.PROC2 ---
Procedure Note - Detailed Date of Procedure 10/02/24 Pre-op Diagnosis Left knee degenerative arthritis. Post-op Diagnosis Same Procedure Performed Calipered, kinematically aligned total knee replacement left knee. 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 Severe delamination noted at the time of surgery. Findings According to the calipered kinematic alignment principles, the knee was balanced by the following verification checks incorporating 6 caliper measurements, using an insert goniometer to select the insert thickness, and adjusting the tibial resection following the kinematic alignment algorithm (see figure 160.10 published in [employer] chapter on kinematic alignment total knee arthroplasty.) The steps verified the femoral and tibial components were kinematically aligned coincident to the patient's pre arthritic joint lines, which closely restored the [place] tibial compartment forces and ligament laxities without ligament release. The [employer] SperiKA knee, designed specifically for kinematic alignment, fit optimally. The record of verification checks were documented and scanned into the chart. Distal Femoral Resection: Distal lateral 6 mm(cartilage worn), Distal medial 8 mm Target thickness of 8mm Unworn, 6mm Worn (No Cartilage). Posterior Femoral Resection: Posterior lateral 5 mm(cartilage worn), Posterior medial 7 mm. Target thickness of 7mm Unworn, 5mm Worn (No Cartilage). Description of Procedure General anesthesia was administered. A well-padded tourniquet was placed high on the thigh. The limb was prepped and draped in the usual sterile fashion. The limb was exsanguinated and the tourniquet inflated to 300 mmHg during exposure. A longitudinal incision was created over the midline of the knee. Sharp dissection was taken through subcutaneous tissues. Electrocautery was used for hemostasis. A trivector approach to the knee joint was performed. The ACL, anterior horns of the menisci, and fat pad were excised, and a subperiosteal dissection was carried along the posterior medial border of the tibia. The thickness of the [place] patella was measured with a caliper. The patella was resected using the oscillating saw. The best fitting anatomic patella button was selected. The fixation holes were drilled. When the patella and patella buttons combined thickness was thicker than the [place] patella, the patella was recut. Starting midway between the top of the notch in the anterior femoral cortex, I drilled a 9 mm diameter hole parallel to the anterior cortex to minimize flexion of the femoral component and promote patella tracking. I verified the existence of a 5-10 mm bone bridge between the posterior aspect of the hole and the anterior limit of the intercondylar notch. An intraosseous positioning angie was inserted 10 cm into the femur perpendicular to the distal joint line and parallel to the anterior cortex. I used a distal femoral referencing guide that compensated 2 mm when the cartilage was worn on the distal medial femoral condyle, and 2 mm when the cartilage was worn on the distal lateral femoral condyle. The basis for setting the distal and posterior femoral resection guide is knowing that the varus and valgus grade II to IV Kellegren-Sivakumar osteoarthritic knees have negligible bone wear at 0? and 90? and that the mean full-thickness cartilage wear approximates 2 mm. I measured the thickness of distal femoral resections with a caliper to +/- 0.5 mm. The thickness of each resection was adjusted to match the thickness of the respective condyle of the femoral component within 0.5 mm of target after compensating for cartilage wear and kerf. When the distal resection was 1-2 mm too thin, a recut guide was used to adjust the cut. When the distal resection was too thick, a 1 or 2 mm thick washer was fixed to the back of the 4-in-1 chamfer block to priya a corrective gap between the femoral component and distal femur. I set posterior femoral referencing guide at 0? orientation to position the pin holes for the 4 in 1 chamfer block. The greer wing measured the width of the distal femoral resection and selected the size of the 4 in 1 chamfer block and femoral component. The AP sizer confirmed the size. I measured the thickness of the posterior femoral resections with a caliper before making the anterior and chamfer cuts. I adjusted the thicknesses of each resection to match the thickness of the respective condyle of the femoral component within +/-0.5 mm after compensating for cartilage wear and curve. When a posterior resection femoral resection was 1-2 mm too thick or thin a corrective correction was made by shifting or rotating the 4 in 1 chamfer block as needed. The chamfer block was secured in the correct position with compression screws. The anterior and chamfer femoral resections were made. These caliper measurements and corrections verified that the femoral component was set coincident with the patient's pre-arthritic distal and posterior femoral joint lines. I removed all the medial and lateral femoral and tibial osteophytes to restore the pre arthritic length of the medial and lateral collateral ligaments. I paul AP lines along the major axis of the lateral tibial plateau in between the tibial spines which identified the flexion extension plane of the knee. A conventional extramedullary tibial resection guide was applied to the ankle. An greer wing was placed medially in the saw slot. The varus valgus angle of the tibial resection guide was adjusted until the guide paralleled the proximal tibial articular surface after compensating for cartilage and bone wear. The slope of flexion extension angle of the tibial resection guide was adjusted until the greer wing paralleled the slope of the medial tibia after compensating for wear. The AP axis of the tibial resection guide was adjusted parallel to the two lines. The proximal tibia was resected, partially releasing the insertion of the posterior cruciate ligament. The thickness of the medial and lateral lateral tibial condyle was measured at the base of the tibial spines. I visually verified the slope of the medial border of the resection was parallel to the patient's pre arthritic slope after compensating for cartilage and bone wear. I removed the remnants of the posterior horns of the menisci and posterior osteophytes and cauterized the inferior lateral genicular vessels. The [employer] bipolar device was also used to for additional hemostasis. When the knee had a preoperative flexion contracture of 20? or more I teased the capsule off the posterior femur with a curved 3 quarter-inch osteotome. I administered the posterior femoral periosteal injection by delivering 10 cc using a 20 gauge spinal needle at the most medial and 10 cc at the most lateral femoral spur surface which reduced the risk of injury to the posterior neurovascular structures. I followed 6 options in a decision tree to fine tune the varus valgus and posterior slope orientation of the tibial component to restore the patient's pre arthritic tibial joint line and limb alignment. First, I adjusted the varus-valgus orientation of the proximal tibia resection working in 1 degree to 2 degree increments until there was negligible medial and lateral lift off of the distal femoral and proximal tibial resection from the spacer block during a varus valgus laxity assessment in extension. I selected the largest anatomic shape trial tibial base plate that fit within the cortical boundary of the proximal tibial resection. The base plate was best fit parallel to the cortical boundary which set the Internal-external orientation of the anterior to posterior and medial to lateral positions. The best fit method set the AP axis of the tibial base plate and insert parallel to the flexion extension plane of the pre arthritic knee. I pinned the trial tibial base plate, prepared the cruciate slot, and fixed the base plate to the tibia with the cruciate stem. I inserted the trial femoral component. The knee was placed in full extension. Varus valgus laxity is of the knee with trial components were assessed. When asymmetric laxity was observed a 1-2 degree varus or valgus recut guide was used to fine tune the tibial resection until the laxity was 1 degree or less in full extension like the [place] knee. The following steps determined the optimal insert thickness within +/-1 mm. First I inserted an insert goniometer that matched the thickness of the spacer block. I reduced the patella and then with the knee in maximum extension, I verified the knee hyperextended a few degrees and had negligible varus valgus laxity, like the pre arthritic knee. Next, I measured the external tibial orientation which was the angle the insert goniometer intersected the sagittal line on the medial condyle of the femoral trial component. Then with the knee in 15-30 degrees flexion I verified a 3-4 mm gap in the lateral compartment and no gap in the medial compartment during a 2nd varus valgus laxity test. Next, I placed the knee in 90? of flexion and the foot resting on the operating table and measured the internal tibial orientation. I repeated the steps until I identified the insert thickness that provided the highest external tibia orientation in extension and the highest internal tibial orientation at 90? flexion without anterior lift-off of the insert from the tibial base plate. The insert with this thickness was implanted. I applied a posterior drawer test with the tibia distracted by gravity and verified no posterior subluxation of the tibia relative to the femur. The patella remained centered on the trochlea and tracked well throughout the entire arc of flexion and extension. I used pulse lavage to clean the bony surfaces of debris and dried bone. I cemented the tibial, femoral, and patellar components using 1 bag of methylmethacrylate with Gentamycin, then rechecked the stability at full extension, 15-30 degrees, and 90? flexion and verified yazidism of the entire arc of motion of the knee. The circulating nurse confirmed the sponge and needle counts were correct. I used pulse lavage to rinse the joint and wound. The extensor mechanism was closed with interrupted #1 Vicryl suture and #1 running Stratafix suture. The subcutaneous layer was closed with interrupted #1 Vicryl suture followed by 2-0 Stratafix and 3-0 Stratafix. Steri-Strips placed on the skin. Silver impregnated occlusive dressing applied to the wound. A light gauze wrap and Akbar bandage were placed. The patient was transferred to the recovery room in stable condition. There were no complications. Implants Medacta K spheriKA Femoral component SpheriKA size 3, tibial component size 2, vitamin-E flex insert, thickness 12mm, Anatomic patella implant size 1. Estimated Blood Loss 100 Tourniquet Time Total Tourniquet Time: 30 Drains No Pathology None sent Complications No immediate complications Condition Stable Disposition PACU [facility] Billing Surgery - Charge Forward: Surgery Billing
[2024-10-02] MEDS: fentaNYL CITRATE INJ (*CRX) 100 MCG/2 ML VIAL 25 MCG IV PUSH ×4 (14:52→15:25)
--- NOTE | 2024-10-02 16:30 | PC.NURSE ---
This patient, Areli Lemus, was admitted to [facility] Room 311-01. Patient/family oriented to hospital policies and general routines including ID bracelet, bed and alarms, visiting hours, pain management, procedures, bathroom and other care routines, personal items, smoking policy, room service/diet, and visiting hours. Information on how to activate the Rapid Response Team has been discussed. Patient/Family are encouraged to report perceived risks to care and to ask questions if they do not understand what they are told or what they should do.
[2024-10-02] MEDS: MELOXICAM 7.5 MG TABLET PO (18:20)
[2024-10-02] MEDS: ASPIRIN 81 MG ENTERIC TABLET PO (18:21)
[2024-10-02] MEDS: ACETAMINOPHEN 325 MG TABLET 650 MG PO ×2 (18:21→23:35)
[2024-10-02] MEDS: traMADol HCL (*CRX) 50 MG TABLET PO (18:26)
[2024-10-02] MEDS: SENNA/DOCUSATE SODIUM TABLET 2 TAB PO (18:27)
[2024-10-02] MEDS: FAMOTIDINE 20 MG TABLET PO (21:19)
--- NOTE | 2024-10-02 23:52 | PC.NURSE ---
LMOM for Dr. Coppola at 2311. Alerted him to urinary retention of 688mL. Patient had gone multiple times with little to no output. Patient used the toilet and was then bladder scanned at 405mL.
[2024-10-03] VITALS (7 sets, daily range): BP systolic 130–168; BP diastolic 72–98; PULSE 74–93; RESP 16–18; TEMP 36.6–37.1; O2SAT 94–97
--- NOTE | ~2024-10-03 | XR_ITS ---
EXAM: [id number] DATE: 10/02/2024 15:20 HISTORY: POST-OP LEFT TKA . COMPARISON: 08/11/2024, images only; MR knee 08/30/2024. FINDINGS: Decreased mineralization. No fracture or dislocation. Small sclerotic lesions in the medul isabela cavity of the femur likely representing small enchondromas or bone infarcts. New left knee arthr oplasty hardware, in good position. No erosion or periosteal change. Postsurgical changes in the soft tissues. No unexpected radiopaque foreign body IMPRESSION: Expected postsurgical changes, with no radiographic evidence of procedure or hardware rel ated complication. Reviewed, dictated and finalized at location [facility]. [employer] REPRESENTATIVES IMPRESSION: Expected postsurgical changes, with no radiographic evidence of pro cedure or hardware related complication.
[2024-10-03] MEDS: ceFAZolin 2 GM/D5W 50 ML 2 GM/50 ML BAG IVPB ×2 (03:45→11:39)
[2024-10-03 06:29] LABS: Basophils Percent Auto 0.2 % (0.2-1.2); Hematocrit 32.2 % (37.0-47.0); Immature Granulocyte Absolute 0.08 K/mm3 (0.00-0.031); Immature Granulocyte Percent A 0.6 % (0-0.5); Lymphocytes Absolute Auto 1.13 K/mm3 (0.9-3.2); Lymphocytes Percent Auto 8.7 % (18.3-44.2); Mean Corpuscular HGB Conc 34.2 g/dl (32-36); Mean Corpuscular Hemoglobin 31.8 pg (26-34); Mean Corpuscular Volume 93.1 fl (80-100); Mean Platelet Volume 9.1 fl (7.4-10.4); Monocytes Absolute Auto 0.9 K/mm3 (0.1-0.6); Monocytes Percent Auto 7.3 % (2.6-8.5); Neutrophils Absolute Auto 10.8 K/mm3 (1.3-6.7); Neutrophils Percent Auto 83.2 % (45.5-73.1); Platelet Count Result 322 k/mm3 (150-375); Red Blood Count 3.46 M/mm3 (4.2-5.4); Red Cell Distribution Width 12.8 % (11.5-14.5)
[2024-10-03 06:36] LABS: Anion Gap 13 mmol/L (4-12); Blood Urea Nitrogen 14 mg/dL (7-17); Carbon Dioxide 21 mmol/L (22-30); Chloride 92 mmol/L (98-107); Estimated CRCL calculation 69 ml/min; Estimated Glomerular Filt Rate > 60; Glucose 120 mg/dL (65-110); Potassium 3.8 mmol/L (3.4-5.0); Sodium 126 mmol/L (137-145)
[2024-10-03] MEDS: ACETAMINOPHEN 325 MG TABLET 650 MG PO ×4 (06:36→23:29)
[2024-10-03] MEDS: traMADol HCL (*CRX) 50 MG TABLET PO (08:13)
[2024-10-03] MEDS: dilTIAZem HCL CD 240 MG CAP.24HR PO (08:14)
[2024-10-03] MEDS: SENNA/DOCUSATE SODIUM TABLET 2 TAB PO ×2 (08:15→16:48)
[2024-10-03] MEDS: ASPIRIN 81 MG ENTERIC TABLET PO ×2 (08:15→16:47)
[2024-10-03] MEDS: hydroCHLOROthiazide 25 MG TABLET PO (08:15)
[2024-10-03] MEDS: MELOXICAM 7.5 MG TABLET PO ×2 (08:15→16:48)
[2024-10-03] MEDS: predniSONE 5 MG TABLET PO (08:16)
[2024-10-03] MEDS: FAMOTIDINE 20 MG TABLET PO ×2 (08:16→20:58)
[2024-10-03] MEDS: TIMOLOL MALEATE XE 0.5% OPHTH GEL SOLN 5 ML BTL 1 DROP EACH EYE (08:17)
--- NOTE | 2024-10-03 10:09 | P.PNIM_ITS ---
Progress Note: A&P Assessment and Plan (1) Essential (primary) hypertension: Code(s): I10 - Essential (primary) hypertension Status: Acute Assessment and Plan: Hold hydrochlorothiazide Started lisinopril 20 mg p.o. q.d. (2) Hyponatremia: Code(s): E87.1 - Hypo-osmolality and hyponatremia Status: Acute Assessment and Plan: Hold hydrochlorothiazide Possibly due to dilution hyponatremia from fluids Will monitor If necessary will order further workup (3) History of arthroplasty: Code(s): Z96.60 - Presence of unspecified orthopedic joint implant Status: Acute Assessment and Plan: Underwent left knee arthroplasty PT OT Anticoagulation as per surgery team Subjective Date/time seen: 10/03/24 10:09 Interval history: 74-year-old female complains persistent left knee pain over the past 3 months. No specific trauma. She has swelling. She uses brace. She uses meloxicam without benefit. Also cause constipation. She has pain with any walking. She has pain. Pain is lateral and posterior. Associated swelling. She mechanical symptoms laterally which improved with an injection. History of lateral meniscectomy on the right knee with very good result despite moderate degenerative changes.On 10/02/24 Patient under Left Total Knee Arthroplasty . Patient denies any medical history other than hypertension. Review of Systems Review of Systems: Review of Systems: All systems review ed & are unremarka ble except as note d in HPI and below Constitutional: Constitutional: Re ports no additiona l constitutional c omplaints Eyes: Eyes: Reports as p er HPI, Denies bli nd spots, Denies b lurry vision, Jaxon es change in visio n, Denies eye disc harge, Denies dry eyes, Denies irrit ation, Denies itch y eyes and Denies eye pain ENT: Reports system rev iewed and no addit ional complaints, except as document ed Cardiovascular: Cardiovascular: Re ports no additiona l cardiovascular c omplaints, Denies chest pain and Den ies dyspnea Respiratory: Respiratory: Repor ts no additional r espiratory complai nts, Denies chest congestion, Denies cough and Denies dyspnea Gastrointestinal: Gastrointestinal: Reports no additio nal gastrointestin al complaints, Den ies abdominal pain , Denies nausea an d Denies vomiting Musculoskeletal: Musculoskeletal: R eports no addition al musculoskeletal complaints Integumentary/Yodit sts: Skin/Breast: Repor ts system reviewed and no additional complaints, excep t as docu Neurologic: Reports system rev iewed and no addit ional complaints, except as document ed Psychiatric: Psychiatric: Repor ts no additional p sychiatric complai nts Allergic/Immunolog ic: Allergic/Immunolog ic: Reports no add itional allergic/i mmunologic complai nts Exam Narrative: Chest: Chest palpation & inspection: normal inspection of the chest Resp: Effort & Inspectio n: normal respirat ory effort and abl e to speak in comp lete sentences Cardio: Rate: regular rate Skin: General skin exam: normal color and no rashes or lesio ns noted Lesions: no lesions Rashe s: no rashes Trau ma: no lacerations or abrasions Wou nds: no wounds Neuro: General: patient o riented x3, gait n ormal, tone normal , moves all extrem ities and no menin geal signs Crania l nerves: Yes Equa l, round and react david pupils present Cognition (Neuro ): normal cognitio n Speech: normal speech Gait exam (Neuro): Normal ga it present Extrem: General: normal to inspection, full ROM, capillary ref ill normal and nor mal gait Psych: Appearance: grossl y normal and well kempt Mental Stat us: mental status grossly normal Sp eech and movement: Normal speech and movement present and Clear speech p resent Affect: no rmal affect Attit ude: cooperative Objective Data Vital Signs Vital Signs: Vital Signs - 24 hr 10/02/24 10:15 10/02/24 14:37 10/02/24 14:50 Temperature 98.7 F 98.1 F Pulse Rate 74 100 98 Respiratory Rate 16 16 16 Blood Pressure 159/79 H 176/86 H 174/91 H Pulse Oximetry 98 95 96 Oxygen Delivery Room Air Simple Face Mask Simple Face Mask Oxygen Flow Rate 8 8 10/02/24 15:05 10/02/24 15:20 10/02/24 15:35 Temperature Pulse Rate 106 H 97 99 Respiratory Rate 20 20 19 Blood Pressure 174/91 H 176/96 H 167/84 H Pulse Oximetry 96 96 96 Oxygen Delivery Simple Face Mask Nasal Cannula Room Air Oxygen Flow Rate 8 2 10/02/24 15:50 10/02/24 16:05 10/02/24 16:13 Temperature Pulse Rate 95 98 95 Respiratory Rate 20 17 18 Blood Pressure 168/87 H 167/81 H 157/97 H Pulse Oximetry 98 97 92 Oxygen Delivery Nasal Cannula Nasal Cannula Oxygen Flow Rate 2 2 10/02/24 16:28 10/02/24 16:30 10/02/24 16:58 Temperature Pulse Rate 103 H 97 Respiratory Rate 18 18 Blood Pressure 172/87 H 155/75 H Pulse Oximetry 93 94 Oxygen Delivery Room Air Oxygen Flow Rate 10/02/24 17:58 10/02/24 20:00 10/02/24 21:58 Temperature 98.1 F Pulse Rate 92 92 87 Respiratory Rate 18 18 18 Blood Pressure 161/84 H 130/72 Pulse Oximetry 96 96 92 Oxygen Delivery Room Air Oxygen Flow Rate 10/03/24 01:58 10/03/24 05:58 10/03/24 09:57 Temperature 98.7 F 98.6 F 97.8 F Pulse Rate 88 93 81 Respiratory Rate 16 18 16 Blood Pressure 131/76 130/72 152/72 H Pulse Oximetry 96 95 94 Oxygen Delivery Oxygen Flow Rate Intake/Output Intake/Output: Intake & Output 09/30/24 10/01/24 10/02/24 10/03/24 23:59 23:59 23:59 23:59 Intake Total 1040 470 Balance 1040 470 Meds/Results Medications: Active Medications Generic Name Dose Route Start Last Admin Trade Name Freq PRN Reason Stop Dose Admin Acetaminophen 650 mg 10/02/24 18:00 10/03/24 06:36 Acetaminophen 325 Mg Tablet PO 650 mg Q6HR [facility] Administration Aspirin 81 mg 10/02/24 17:00 10/03/24 08:15 Aspirin 81 Mg Enteric Tablet PO 81 mg BID [facility] Administration Cyclobenzaprine HCl 10 mg 10/02/24 16:13 Cyclobenzaprine Hcl 10 Mg Tablet PO Q8H PRN Spasms Diltiazem HCl 240 mg 10/03/24 09:00 10/03/24 08:14 Diltiazem Hcl Cd 240 Mg Cap.24hr PO 240 mg DAILY [facility] Administration Diphenhydramine HCl 25 mg 10/02/24 16:13 Diphenhydramine Hcl Inj 50 Mg/Ml Vial IV PUSH Q6H PRN Itching Famotidine 20 mg 10/02/24 21:00 10/03/24 08:16 Famotidine 20 Mg Tablet PO 20 mg Q12HR [facility] Administration Hydrochlorothiazide 25 mg 10/03/24 09:00 10/03/24 08:15 Hydrochlorothiazide 25 Mg Tablet PO 25 mg QAM [facility] Administration Hydromorphone HCl 1 mg 10/02/24 16:13 Hydromorphone Hcl Inj (*Crx) 1 Mg/Ml Syr IV PUSH Q2H PRN Breakthrough Pain Rated 7-10 or NPO Hydromorphone HCl 0.5 mg 10/02/24 16:13 Hydromorphone Hcl Inj (*Crx) 1 Mg/Ml Syr IV PUSH Q2H PRN Breakthrough Pain Rated 4-6 or NPO Cefazolin Sodium 2 gm in 50 mls @ 100 mls/hr 10/02/24 20:00 10/03/24 04:15 Ancef 2 Gm/D5w 50 Ml IVPB 10/03/24 12:29 Infused Q8H [facility] Infusion Meloxicam 7.5 mg 10/02/24 17:00 10/03/24 08:15 Meloxicam 7.5 Mg Tablet PO 7.5 mg BID [facility] Administration Naloxone HCl 0.1 mg 10/02/24 16:13 Naloxone Hcl 0.4 Mg/Ml Vial IV PUSH Q2M PRN Opiate Reversal Ondansetron HCl 4 mg 10/02/24 16:13 Ondansetron Inj 4 Mg/2 Ml Vial IV PUSH Q4H PRN Nausea And Vomiting Oxycodone/Acetaminophen 1 tablet 10/02/24 16:13 Oxycodone/Acetaminophen (*Crx) 5-325 Mg Tablet PO Q4H PRN Pain Rated 4-6 Oxycodone/Acetaminophen 1 tab 10/02/24 16:13 Oxycodone/Acetaminophen (*Crx) 10-325 Mg Tablet PO Q6H PRN Pain Rated 7-10 Polyethylene Glycol 17 gm 10/03/24 09:00 10/03/24 08:17 Polyethylene Glycol 3350 17 Gm Powd.Pack PO Not Given QAM [facility] Prednisone 5 mg 10/03/24 08:00 10/03/24 08:16 Prednisone 5 Mg Tablet PO 5 mg DAILY@0800 [facility] Administration Senna/Docusate Sodium 2 tab 10/02/24 17:00 10/03/24 08:15 Senna/Docusate Sodium Tablet PO 2 tab BID [facility] Administration Timolol Maleate 1 drop 10/03/24 09:00 10/03/24 08:17 Timolol Maleate Xe 0.5% Ophth Gel Soln 5 Ml Btl EACH EYE 1 drop DAILY [facility] Administration Tramadol HCl 50 mg 10/02/24 16:13 10/03/24 08:13 Tramadol Hcl (*Crx) 50 Mg Tablet PO 50 mg Q4H PRN Administration Pain Rated 1-3 Radiology Results: ITS Impressions Knee X-Ray 10/02/24 15:48 IMPRESSION: Expected postsurgical changes, with no radiographic evidence of procedure or hardware related complication. Labs Labs: Laboratory Results - last 24 hr 10/03/24 05:51 WBC 13.0 H RBC 3.46 L Hgb 11.0 L Hct 32.2 L MCV 93.1 MCH 31.8 MCHC 34.2 RDW 12.8 Plt Count 322 MPV 9.1 Immature Gran % (Auto) 0.6 H Neut % (Auto) 83.2 H Lymph % (Auto) 8.7 L [place] % (Auto) 7.3 Eos % (Auto) 0.0 Baso % (Auto) 0.2 Lymph # (Auto) 1.13 [place] # (Auto) 0.9 H Eos # (Auto) 0.0 Baso # (Auto) 0.0 Abs Immat Gran (auto) 0.08 H Absolute Neuts (auto) 10.8 H Absolute Nucleated RBC 0.000 Nucleated RBC % 0.0 Sodium 126 L Potassium 3.8 Chloride 92 L Carbon Dioxide 21 L Anion Gap 13 H BUN 14 Creatinine 0.55 L Estim Creat Clear Calc 69 Estimated GFR > 60 Glucose 120 H Calcium 9.0 Hospitalist MIPS Advance Care Plan I have confirmed that the patient's Advanced Care Plan is present, code status is documented, or surrogate decision maker is listed in patient medical record.: Yes Medication Reconciliation I have utilized all available resources to obtain, update and review the kaye ents current medications (includes all prescriptions, OTC, herbals, cannabis, and nutritional supplements).: Yes
--- NOTE | 2024-10-03 14:38 | PCPTNOTE ---
On 10/03/24, the student, RUSSELL Burden, provided care and completed [facility] documentation on this patient. I have reviewed the student's documentation and agree with the findings.
--- NOTE | 2024-10-03 17:14 | PM.IMCN ---
Assessment and Plan Assessment and plan (1) Essential (primary) hypertension: Code(s): I10 - Essential (primary) hypertension Status: Acute Assessment and Plan: Hold hydrochlorothiazide Started lisinopril 20 mg p.o. q.d. (2) Hyponatremia: Code(s): E87.1 - Hypo-osmolality and hyponatremia Status: Acute Assessment and Plan: Hold hydrochlorothiazide Possibly due to dilution hyponatremia from fluids Will monitor If necessary will order further workup (3) History of arthroplasty: Code(s): Z96.60 - Presence of unspecified orthopedic joint implant Status: Acute Assessment and Plan: Underwent left knee arthroplasty PT OT Anticoagulation as per surgery team HPI Date of Consult Consult date: 10/03/24 Requesting Physician: Marc Coppola MD Primary Care Provider: Holly Vizcaino APRN Consult Narrative Narrative: 74-year-old female complains persistent left knee pain over the past 3 months. No specific trauma. She has swelling. She uses brace. She uses meloxicam without benefit. Also cause constipation. She has pain with any walking. She has pain. Pain is lateral and posterior. Associated swelling. She mechanical symptoms laterally which improved with an injection. History of lateral meniscectomy on the right knee with very good result despite moderate degenerative changes.On 10/02/24 Patient under Left Total Knee Arthroplasty . Patient denies any medical history other than hypertension. Review of Systems Review of Systems: Review of Systems: All systems review ed & are unremarka ble except as note d in HPI and below Constitutional: Constitutional: Re ports no additiona l constitutional c omplaints Eyes: Eyes: Reports as p er HPI, Denies bli nd spots, Denies b lurry vision, Jaxon es change in visio n, Denies eye disc harge, Denies dry eyes, Denies irrit ation, Denies itch y eyes and Denies eye pain ENT: Reports system rev iewed and no addit ional complaints, except as document ed Cardiovascular: Cardiovascular: Re ports no additiona l cardiovascular c omplaints, Denies chest pain and Den ies dyspnea Respiratory: Respiratory: Repor ts no additional r espiratory complai nts, Denies chest congestion, Denies cough and Denies dyspnea Gastrointestinal: Gastrointestinal: Reports no additio nal gastrointestin al complaints, Den ies abdominal pain , Denies nausea an d Denies vomiting Musculoskeletal: Musculoskeletal: R eports no addition al musculoskeletal complaints Integumentary/Yodit sts: Skin/Breast: Repor ts system reviewed and no additional complaints, excep t as docu Neurologic: Reports system rev iewed and no addit ional complaints, except as document ed Psychiatric: Psychiatric: Repor ts no additional p sychiatric complai nts Allergic/Immunolog ic: Allergic/Immunolog ic: Reports no add itional allergic/i mmunologic complai nts [facility] Past Medical History Medical History Sebaceous cyst Orthopedic aftercare Hypertension Complex tear of lateral meniscus of right knee Hepatic cyst Needs periodic surveillance with CT or MRI Colon cancer 2014 colectomy stage one History of stress test (~2013) Right knee DJD Lipoma Breast tumor 1977, 1980, 2002 Calculus of parotid gland (~2010) Surgical History Surgical History History of meniscectomy of right knee (~08/17/22) Arthroscopic Lateral H/O lumpectomy Hx of breast biopsy History of hysterectomy (~1974) History of cataract extraction (~1995) History of colectomy (~2013) History of colonoscopy (~09/02/16) Family History Family History Mother Hypertension Diabetes mellitus Family history of glaucoma Family history of cardiovascular disease Father Hypertension Family history of malignant melanoma Sibling Cerebrovascular accident Other Family history of allergic disorder Family history of seizure disorder Social History Social History Smoking packs per day: 1 Smoking cigarettes per day: 20.0 Years smoked: 40 Smoking pack-years: 40.00 Smoking status: Former smoker Tobacco type: cigarettes Smoking end date: 08/09/11 Alcohol intake: never Substance use: never Substance use type: does not use Do You Feel Safe in your Home?: Yes Lack of Transportation: No Lack of Food: Never True Current Housing: I Have Housing Concerned About Future Housing: Decline to Answer Difficulty Paying Gas/Electric Bills: Decline to Answer Difficulty Paying for Meds: Decline to Answer Currently Unemployed: Decline to Answer Education: High School Diploma/GED Difficulty w/ Childcare or Family Care: Decline to Answer Living arrangements: with family Additional living arrangements comments: [facility] Gender identity (if verbalized by the patient): Female Sexual Orientation (if Verbalized by the Patient): Straight or Heterosexual Spiritual care concerns: No Meds Home Medications and Allergies Home Medications ?Medication ?Instructions ?Recorded ?Confirmed ?Type timolol maleate 0.5 % eye gel 1 drp EACH EYE DAILY 08/13/22 09/28/24 History forming solution acetaminophen 650 mg 1,300 mg PO Q12H PRN pain 09/28/22 09/28/24 History tablet,extended release (Tylenol Arthritis Pain) psyllium husk 0.4 gram capsule 0.4 g PO DAILY 09/28/22 09/28/24 History (Metamucil) cholecalciferol (vitamin D3) 50 See Rx Instructions .Route 07/13/24 09/28/24 Rx mcg (2,000 unit) capsule .COMPLEX #90 caps diltiazem HCl 240 mg See Rx Instructions .Route 07/13/24 09/28/24 Rx capsule,extended release 24 hr .COMPLEX #90 caps hydrochlorothiazide 25 mg tablet 25 mg PO QAM #90 tabs 07/13/24 09/28/24 Rx acetaminophen 500 mg tablet 1,000 mg PO Q6H PRN pain 09/28/24 09/28/24 History (Acetaminophen Extra Strength) fluticasone propionate 50 2 spray intranasal DAILY PRN nasal 09/28/24 09/28/24 History mcg/actuation nasal congestion spray,suspension (24 Hour Allergy Relief) meloxicam 15 mg tablet 15 mg PO DAILY 09/28/24 09/28/24 History tramadol 50 mg tablet 50 mg PO Q8H PRN pain 09/28/24 09/28/24 History aspirin 81 mg tablet,delayed 81 mg PO BID 14 days #28 tabs 10/02/24 Rx release oxycodone-acetaminophen 5 mg-325 1 - 2 tablet PO Q4-6H PRN pain 7 10/02/24 Rx mg tablet days #30 tabs prednisone 5 mg tablet 5 mg PO DAILY 3 weeks #21 tabs 10/02/24 Rx Allergies Allergy/AdvReac Type Severity Reaction Status Date / Time bacitracin AdvReac Mild Rash Verified 10/02/24 10:28 codeine AdvReac Mild ABD PAIN, Verified 10/02/24 10:28 NAUSEA neomycin AdvReac Mild RASH Verified 10/02/24 10:28 polymyxin B AdvReac Mild Rash Verified 10/02/24 10:28 Vital Signs Vital Signs - 24 hr 10/02/24 17:58 10/02/24 20:00 10/02/24 21:58 Temperature 98.1 F Pulse Rate 92 92 87 Respiratory Rate 18 18 18 Blood Pressure 161/84 H 130/72 Pulse Oximetry 96 96 92 Oxygen Delivery Room Air 10/03/24 01:58 10/03/24 05:58 10/03/24 09:57 Temperature 98.7 F 98.6 F 97.8 F Pulse Rate 88 93 81 Respiratory Rate 16 18 16 Blood Pressure 131/76 130/72 152/72 H Pulse Oximetry 96 95 94 Oxygen Delivery 10/03/24 13:58 Temperature 98.2 F Pulse Rate 76 Respiratory Rate 16 Blood Pressure 134/74 Pulse Oximetry 97 Oxygen Delivery Exam Narrative: Chest: Chest palpation & inspection: normal inspection of the chest Resp: Effort & Inspectio n: normal respirat ory effort and abl e to speak in comp lete sentences Cardio: Rate: regular rate Skin: General skin exam: normal color and no rashes or lesio ns noted Lesions: no lesions Rashe s: no rashes Trau ma: no lacerations or abrasions Wou nds: no wounds Neuro: General: patient o riented x3, gait n ormal, tone normal , moves all extrem ities and no menin geal signs Crania l nerves: Yes Equa l, round and react david pupils present Cognition (Neuro ): normal cognitio n Speech: normal speech Gait exam (Neuro): Normal ga it present Extrem: General: normal to inspection, full ROM, capillary ref ill normal and nor mal gait Psych: Appearance: grossl y normal and well kempt Mental Stat us: mental status grossly normal Sp eech and movement: Normal speech and movement present and Clear speech p resent Affect: no rmal affect Attit ude: cooperative Results Labs 10/03/24 05:51 10/03/24 05:51 Labs: Short CBC 10/03/24 Range/Units 05:51 WBC 13.0 H (4.5-10.0) K/mm3 Hgb 11.0 L (12.0-15.0) g/dL Hct 32.2 L (37.0-47.0) % Plt Count 322 (150-375) k/mm3 [facility] 10/03/24 05:51 Sodium 126 L Potassium 3.8 Chloride 92 L Carbon Dioxide 21 L BUN 14 Creatinine 0.55 L Glucose 120 H Calcium 9.0 Hospitalist MIPS Advance Care Plan I have confirmed that the patient's Advanced Care Plan is present, code status is documented, or surrogate decision maker is listed in patient medical record.: Yes Medication Reconciliation I have utilized all available resources to obtain, update and review the patients current medications (includes all prescriptions, OTC, herbals, cannabis, and nutritional supplements).: Yes
[2024-10-04] MEDS: traMADol HCL (*CRX) 50 MG TABLET PO ×4 (03:00→22:38)
[2024-10-04] MEDS: ACETAMINOPHEN 325 MG TABLET 650 MG PO ×4 (05:38→23:58)
[2024-10-04 06:10] VITALS: BP 139/90; PULSE 77; RESP 18; TEMP 36.7; O2SAT 96
--- NOTE | 2024-10-04 07:36 | PM.PNORT ---
Progress Note: A&P Assessment and Plan (1) Status post left knee replacement: Code(s): Z96.652 - Presence of left artificial knee joint Status: Acute (2) Hyponatremia: Code(s): E87.1 - Hypo-osmolality and hyponatremia Status: Acute Plan Patient seen and examined yesterday. Patient was doing very well with recovery; however her sodium level was 126. She was at 132 pre-operatively. She is asymptomatic. Consulted hospitalist yesterday. Labs pending this AM. Will likely discharge today if sodium is trending up. This AM patient notes worsening swelling and pain. This is expected. Subjective Subjective Date/Time Seen: 10/04/24 07:36 Interval history: Patient progressing well. Review of Systems Review of Systems: All systems reviewed & are unremarkable except as noted in HPI and below Exam Narrative: 74-year-old normal weight female. Resting comfortably in bed. Alert and oriented x3. No acute distress. Wearing compression socks bilaterally. Dressing intact with no drainage. Moderate swelling. Moderate ecchymosis. No erythema. Small hematoma. No warmth. Range of motion limited due to pain. Calf nontender. Neurologic status intact. No varicosities. Distal pulses palpable. Light touch sensation intact. Good capillary refill. Objective Data Vital Signs Vital Signs: Vital Signs - 24 hr 10/03/24 09:57 10/03/24 13:58 10/03/24 17:58 Temperature 97.8 F 98.2 F 97.8 F Pulse Rate 81 76 74 Respiratory Rate 16 16 18 Blood Pressure 152/72 H 134/74 131/74 Pulse Oximetry 94 97 97 Oxygen Delivery 10/03/24 20:00 10/03/24 21:31 10/04/24 06:10 Temperature 98.3 F 98.1 F Pulse Rate 87 87 77 Respiratory Rate 18 18 18 Blood Pressure 168/98 H 139/90 Pulse Oximetry 96 96 96 Oxygen Delivery Room Air Intake/Output Intake/Output: Intake & Output 10/01/24 10/02/24 10/03/24 10/04/24 23:59 23:59 23:59 23:59 Intake Total 1040 1880 200 Balance 1040 1880 200 Meds/Results Medications: Active Medications Generic Name Dose Route Start Last Admin Trade Name Freq PRN Reason Stop Dose Admin Acetaminophen 650 mg 10/02/24 18:00 10/04/24 05:38 Acetaminophen 325 Mg Tablet PO 650 mg Q6HR [facility] Administration Aspirin 81 mg 10/02/24 17:00 10/03/24 16:47 Aspirin 81 Mg Enteric Tablet PO 81 mg BID [facility] Administration Cyclobenzaprine HCl 10 mg 10/02/24 16:13 Cyclobenzaprine Hcl 10 Mg Tablet PO Q8H PRN Spasms Diltiazem HCl 240 mg 10/03/24 09:00 10/03/24 08:14 Diltiazem Hcl Cd 240 Mg Cap.24hr PO 240 mg DAILY [facility] Administration Diphenhydramine HCl 25 mg 10/02/24 16:13 Diphenhydramine Hcl Inj 50 Mg/Ml Vial IV PUSH Q6H PRN Itching Famotidine 20 mg 10/02/24 21:00 10/03/24 20:58 Famotidine 20 Mg Tablet PO 20 mg Q12HR [facility] Administration Hydrochlorothiazide 25 mg 10/03/24 09:00 10/03/24 08:15 Hydrochlorothiazide 25 Mg Tablet PO 25 mg QAM [facility] Administration Hydromorphone HCl 1 mg 10/02/24 16:13 Hydromorphone Hcl Inj (*Crx) 1 Mg/Ml Syr IV PUSH Q2H PRN Breakthrough Pain Rated 7-10 or NPO Hydromorphone HCl 0.5 mg 10/02/24 16:13 Hydromorphone Hcl Inj (*Crx) 1 Mg/Ml Syr IV PUSH Q2H PRN Breakthrough Pain Rated 4-6 or NPO Lisinopril 20 mg 10/04/24 09:00 Lisinopril 20 Mg Tablet PO QAM [facility] Meloxicam 7.5 mg 10/02/24 17:00 10/03/24 16:48 Meloxicam 7.5 Mg Tablet PO 7.5 mg BID [facility] Administration Naloxone HCl 0.1 mg 10/02/24 16:13 Naloxone Hcl 0.4 Mg/Ml Vial IV PUSH Q2M PRN Opiate Reversal Ondansetron HCl 4 mg 10/02/24 16:13 Ondansetron Inj 4 Mg/2 Ml Vial IV PUSH Q4H PRN Nausea And Vomiting Oxycodone/Acetaminophen 1 tablet 10/02/24 16:13 Oxycodone/Acetaminophen (*Crx) 5-325 Mg Tablet PO Q4H PRN Pain Rated 4-6 Oxycodone/Acetaminophen 1 tab 10/02/24 16:13 Oxycodone/Acetaminophen (*Crx) 10-325 Mg Tablet PO Q6H PRN Pain Rated 7-10 Polyethylene Glycol 17 gm 10/03/24 09:00 10/03/24 08:17 Polyethylene Glycol 3350 17 Gm Powd.Pack PO Not Given QAM [facility] Prednisone 5 mg 10/03/24 08:00 10/03/24 08:16 Prednisone 5 Mg Tablet PO 5 mg DAILY@0800 [facility] Administration Senna/Docusate Sodium 2 tab 10/02/24 17:00 10/03/24 16:48 Senna/Docusate Sodium Tablet PO 2 tab BID [facility] Administration Timolol Maleate 1 drop 10/03/24 09:00 10/03/24 08:17 Timolol Maleate Xe 0.5% Ophth Gel Soln 5 Ml Btl EACH EYE 1 drop DAILY [facility] Administration Tramadol HCl 50 mg 10/02/24 16:13 10/04/24 03:00 Tramadol Hcl (*Crx) 50 Mg Tablet PO 50 mg Q4H PRN Administration Pain Rated 1-3 Radiology Results: ITS Impressions Knee X-Ray 10/02/24 15:48 IMPRESSION: Expected postsurgical changes, with no radiographic evidence of procedure or hardware related complication.
--- NOTE | 2024-10-04 08:28 | P.PNIM_ITS ---
Progress Note: A&P Assessment and Plan (1) Essential (primary) hypertension: Code(s): I10 - Essential (primary) hypertension Status: Acute Assessment and Plan: Hold hydrochlorothiazide Started lisinopril 20 mg p.o. q.d. (2) Hyponatremia: Code(s): E87.1 - Hypo-osmolality and hyponatremia Status: Acute Assessment and Plan: Hold hydrochlorothiazide Possibly due to dilution hyponatremia from fluids Will monitor -IV fluids at 75 mL/hour If necessary will order further workup Recheck CMP this afternoon, if stable can be discharged (3) History of arthroplasty: Code(s): Z96.60 - Presence of unspecified orthopedic joint implant Status: Acute Assessment and Plan: Underwent left knee arthroplasty PT OT Anticoagulation as per surgery team Plan -if sodium level is over 130, patient can be discharged per Ortho. Time Spent With Patient Time with patient: Greater than 35 minutes Subjective Date/time seen: 10/04/24 08:28 Interval history: Patient progressing well. Sodium is 128 today, must be above 130 for safe discharge. Patient denies any distress or concerns. States her knee feels a painful when she is working with PT, otherwise she is doing well. Review of Systems Review of Systems: Review of Systems: All systems review ed & are unremarka ble except as note d in HPI and below Constitutional: Constitutional: Re ports no additiona l constitutional c omplaints Eyes: Eyes: Reports as p er HPI, Denies bli nd spots, Denies b lurry vision, Jaxon es change in visio n, Denies eye disc harge, Denies dry eyes, Denies irrit ation, Denies itch y eyes and Denies eye pain ENT: Reports system rev iewed and no addit ional complaints, except as document ed Cardiovascular: Cardiovascular: Re ports no additiona l cardiovascular c omplaints, Denies chest pain and Den ies dyspnea Respiratory: Respiratory: Repor ts no additional r espiratory complai nts, Denies chest congestion, Denies cough and Denies dyspnea Gastrointestinal: Gastrointestinal: Reports no additio nal gastrointestin al complaints, Den ies abdominal pain , Denies nausea an d Denies vomiting Musculoskeletal: Musculoskeletal: R eports no addition al musculoskeletal complaints Integumentary/[place] sts: Skin/Breast: Repor ts system reviewed and no additional complaints, excep t as docu Neurologic: Reports system rev iewed and no addit ional complaints, except as document ed Psychiatric: Psychiatric: Repor ts no additional p sychiatric complai nts Allergic/Immunolog ic: Allergic/Immunolog ic: Reports no add itional allergic/i mmunologic complai nts Exam Narrative: Chest: Chest palpation & inspection: normal inspection of the chest Resp: Effort & Inspectio n: normal respirat ory effort and abl e to speak in comp lete sentences Cardio: Rate: regular rate Skin: General skin exam: normal color and no rashes or lesio ns noted Lesions: no lesions Rashe s: no rashes Trau ma: no lacerations or abrasions Wou nds: no wounds Neuro: General: patient o riented x3, gait n ormal, tone normal , moves all extrem ities and no menin geal signs Crania l nerves: Yes Equa l, round and react david pupils present Cognition (Neuro ): normal cognitio n Speech: normal speech Gait exam (Neuro): Normal ga it present Extrem: General: normal to inspection, full ROM, capillary ref ill normal and nor mal gait Psych: Appearance: grossl y normal and well kempt Mental Stat us: mental status grossly normal Sp eech and movement: Normal speech and movement present and Clear speech p resent Affect: no rmal affect Attit ude: cooperative Objective Data Vital Signs Vital Signs: Vital Signs - 24 hr 10/03/24 09:57 10/03/24 13:58 10/03/24 17:58 Temperature 97.8 F 98.2 F 97.8 F Pulse Rate 81 76 74 Respiratory Rate 16 16 18 Blood Pressure 152/72 H 134/74 131/74 Pulse Oximetry 94 97 97 Oxygen Delivery 10/03/24 20:00 10/03/24 21:31 10/04/24 06:10 Temperature 98.3 F 98.1 F Pulse Rate 87 87 77 Respiratory Rate 18 18 18 Blood Pressure 168/98 H 139/90 Pulse Oximetry 96 96 96 Oxygen Delivery Room Air Intake/Output Intake/Output: Intake & Output 10/01/24 10/02/24 10/03/24 10/04/24 23:59 23:59 23:59 23:59 Intake Total 1040 1880 200 Balance 1040 1880 200 Meds/Results Medications: Active Medications Generic Name Dose Route Start Last Admin Trade Name Freq PRN Reason Stop Dose Admin Acetaminophen 650 mg 10/02/24 18:00 10/04/24 05:38 Acetaminophen 325 Mg Tablet PO 650 mg Q6HR [facility]OL[facility] Administration Aspirin 81 mg 10/02/24 17:00 10/03/24 16:47 Aspirin 81 Mg Enteric Tablet PO 81 mg BID [facility] Administration Cyclobenzaprine HCl 10 mg 10/02/24 16:13 Cyclobenzaprine Hcl 10 Mg Tablet PO Q8H PRN Spasms Diltiazem HCl 240 mg 10/03/24 09:00 10/03/24 08:14 Diltiazem Hcl Cd 240 Mg Cap.24hr PO 240 mg DAILY [facility] Administration Diphenhydramine HCl 25 mg 10/02/24 16:13 Diphenhydramine Hcl Inj 50 Mg/Ml Vial IV PUSH Q6H PRN Itching Famotidine 20 mg 10/02/24 21:00 10/03/24 20:58 Famotidine 20 Mg Tablet PO 20 mg Q12HR [facility] Administration Hydrochlorothiazide 25 mg 10/03/24 09:00 10/03/24 08:15 Hydrochlorothiazide 25 Mg Tablet PO 25 mg QAM [facility] Administration Hydromorphone HCl 1 mg 10/02/24 16:13 Hydromorphone Hcl Inj (*Crx) 1 Mg/Ml Syr IV PUSH Q2H PRN Breakthrough Pain Rated 7-10 or NPO Hydromorphone HCl 0.5 mg 10/02/24 16:13 Hydromorphone Hcl Inj (*Crx) 1 Mg/Ml Syr IV PUSH Q2H PRN Breakthrough Pain Rated 4-6 or NPO Sodium Chloride 1,000 mls @ 75 mls/hr 10/04/24 08:25 Normal Saline Iv IV CONT .[id number] [facility] Lisinopril 20 mg 10/04/24 09:00 Lisinopril 20 Mg Tablet PO QAM [facility] Meloxicam 7.5 mg 10/02/24 17:00 10/03/24 16:48 Meloxicam 7.5 Mg Tablet PO 7.5 mg BID [facility] Administration Naloxone HCl 0.1 mg 10/02/24 16:13 Naloxone Hcl 0.4 Mg/Ml Vial IV PUSH Q2M PRN Opiate Reversal Ondansetron HCl 4 mg 10/02/24 16:13 Ondansetron Inj 4 Mg/2 Ml Vial IV PUSH Q4H PRN Nausea And Vomiting Oxycodone/Acetaminophen 1 tablet 10/02/24 16:13 Oxycodone/Acetaminophen (*Crx) 5-325 Mg Tablet PO Q4H PRN Pain Rated 4-6 Oxycodone/Acetaminophen 1 tab 10/02/24 16:13 Oxycodone/Acetaminophen (*Crx) 10-325 Mg Tablet PO Q6H PRN Pain Rated 7-10 Polyethylene Glycol 17 gm 10/03/24 09:00 10/03/24 08:17 Polyethylene Glycol 3350 17 Gm Powd.Pack PO Not Given QAM [facility] Prednisone 5 mg 10/03/24 08:00 10/03/24 08:16 Prednisone 5 Mg Tablet PO 5 mg DAILY@0800 [facility] Administration Senna/Docusate Sodium 2 tab 10/02/24 17:00 10/03/24 16:48 Senna/Docusate Sodium Tablet PO 2 tab BID [facility] Administration Timolol Maleate 1 drop 10/03/24 09:00 10/03/24 08:17 Timolol Maleate Xe 0.5% Ophth Gel Soln 5 Ml Btl EACH EYE 1 drop DAILY [facility] Administration Tramadol HCl 50 mg 10/02/24 16:13 10/04/24 03:00 Tramadol Hcl (*Crx) 50 Mg Tablet PO 50 mg Q4H PRN Administration Pain Rated 1-3 Radiology Results: ITS Impressions Knee X-Ray 10/02/24 15:48 IMPRESSION: Expected postsurgical changes, with no radiographic evidence of procedure or hardware related complication. Quality VTE Prophylaxis VTE prophylaxis: mechanical ordered and pharmacologic ordered Hospitalist MIPS Advance Care Plan I have confirmed that the patient's Advanced Care Plan is present, code status is documented, or surrogate decision maker is listed in patient medical record.: Yes Medication Reconciliation I have utilized all available resources to obtain, update and review the patients current medications (includes all prescriptions, OTC, herbals, cannabis, and nutritional supplements).: Yes
[2024-10-04 08:39] LABS: Basophils Percent Auto 0.4 % (0.2-1.2); Eosinophils Absolute Auto 0.1 K/mm3 (0-0.3); Eosinophils Percent Auto 0.6 % (0-4.4); Hematocrit 33.2 % (37.0-47.0); Hemoglobin 11.4 g/dL (12.0-15.0); Immature Granulocyte Absolute 0.06 K/mm3 (0.00-0.031); Immature Granulocyte Percent A 0.6 % (0-0.5); Lymphocytes Absolute Auto 2.01 K/mm3 (0.9-3.2); Lymphocytes Percent Auto 21.2 % (18.3-44.2); Mean Corpuscular HGB Conc 34.3 g/dl (32-36); Mean Corpuscular Hemoglobin 31.8 pg (26-34); Mean Corpuscular Volume 92.7 fl (80-100); Mean Platelet Volume 8.9 fl (7.4-10.4); Monocytes Percent Auto 10.8 % (2.6-8.5); Neutrophils Absolute Auto 6.3 K/mm3 (1.3-6.7); Neutrophils Percent Auto 66.4 % (45.5-73.1); Platelet Count Result 344 k/mm3 (150-375); Red Blood Count 3.58 M/mm3 (4.2-5.4); White Blood Count 9.5 K/mm3 (4.5-10.0)
[2024-10-04 08:55] LABS: Alanine Aminotransferase 16 U/L (6-35); Albumin Level 4.1 g/dL (3.5-5.1); Alkaline Phosphatase 95 U/L (38-126); Anion Gap 10 mmol/L (4-12); Aspartate Amino Transferase 31 U/L (14-36); Bilirubin,Total 0.8 mg/dL (0.2-1.3); Blood Urea Nitrogen 11 mg/dL (7-17); Calcium 9.4 mg/dL (8.4-10.2); Carbon Dioxide 30 mmol/L (22-30); Chloride 88 mmol/L (98-107); Estimated CRCL calculation 64 ml/min; Estimated Glomerular Filt Rate > 60; Glucose 93 mg/dL (65-110); Potassium 3.7 mmol/L (3.4-5.0); Sodium 128 mmol/L (137-145)
[2024-10-04] MEDS: SODIUM CHLORIDE 0.9% IV 1,000 ML 75 ML IV CONT ×2 (09:34→23:59)
[2024-10-04] MEDS: MELOXICAM 7.5 MG TABLET PO ×2 (09:36→17:40)
[2024-10-04] MEDS: dilTIAZem HCL CD 240 MG CAP.24HR PO (09:36)
[2024-10-04] MEDS: predniSONE 5 MG TABLET PO (09:36)
[2024-10-04] MEDS: ASPIRIN 81 MG ENTERIC TABLET PO ×2 (09:36→17:40)
[2024-10-04] MEDS: polyethylene glycoL 3350 17 GM POWD.PACK PO (09:36)
[2024-10-04] MEDS: SENNA/DOCUSATE SODIUM TABLET 2 TAB PO ×2 (09:36→17:40)
[2024-10-04] MEDS: FAMOTIDINE 20 MG TABLET PO ×2 (09:36→21:19)
[2024-10-04] MEDS: lisinopriL 20 MG TABLET PO (09:36)
[2024-10-04] MEDS: TIMOLOL MALEATE XE 0.5% OPHTH GEL SOLN 5 ML BTL 1 DROP EACH EYE (09:38)
--- NOTE | 2024-10-04 11:12 | PCPTNOTE ---
On 10/04/24, the student, RUSSELL Burden, provided care and completed [facility] documentation on this patient. I have reviewed the student's documentation and agree with the findings.
[2024-10-04 14:00] VITALS: BP 141/79; PULSE 89; RESP 18; TEMP 36.6; O2SAT 99
--- NOTE | 2024-10-04 15:08 | PCPTNOTE ---
On 10/04/24, the student, RUSSELL Burden, provided care and completed [facility] documentation on this patient for P.M. PT treatment. I have reviewed the student's documentation and agree with the findings.
[2024-10-04 15:40] LABS: Alanine Aminotransferase 16 U/L (6-35); Albumin Level 3.9 g/dL (3.5-5.1); Alkaline Phosphatase 91 U/L (38-126); Anion Gap 10 mmol/L (4-12); Aspartate Amino Transferase 26 U/L (14-36); Bilirubin,Total 0.6 mg/dL (0.2-1.3); Blood Urea Nitrogen 17 mg/dL (7-17); Calcium 9.1 mg/dL (8.4-10.2); Carbon Dioxide 26 mmol/L (22-30); Chloride 91 mmol/L (98-107); Estimated CRCL calculation 59 ml/min; Estimated Glomerular Filt Rate > 60; Glucose 111 mg/dL (65-110); Potassium 4.4 mmol/L (3.4-5.0); Sodium 127 mmol/L (137-145)
[2024-10-04] MEDS: SODIUM CHLORIDE 500 MG TABLET PO (17:40)
[2024-10-04 22:00] VITALS: BP 147/67; PULSE 80; RESP 18; TEMP 36.3; O2SAT 93
[2024-10-05 05:11] VITALS: BP 123/72; PULSE 78; RESP 16; TEMP 36.8; O2SAT 94
[2024-10-05] MEDS: ACETAMINOPHEN 325 MG TABLET 650 MG PO ×2 (06:36→13:10)
[2024-10-05 06:57] LABS: Alanine Aminotransferase 12 U/L (6-35); Albumin Level 3.1 g/dL (3.5-5.1); Alkaline Phosphatase 74 U/L (38-126); Anion Gap 5 mmol/L (4-12); Aspartate Amino Transferase 22 U/L (14-36); Bilirubin,Total 0.6 mg/dL (0.2-1.3); Blood Urea Nitrogen 10 mg/dL (7-17); Calcium 8.5 mg/dL (8.4-10.2); Carbon Dioxide 27 mmol/L (22-30); Chloride 96 mmol/L (98-107); Estimated CRCL calculation 71 ml/min; Estimated Glomerular Filt Rate > 60; Glucose 86 mg/dL (65-110); Potassium 3.5 mmol/L (3.4-5.0); Sodium 128 mmol/L (137-145)
--- NOTE | 2024-10-05 07:16 | PM.IMPN ---
Progress Note: A&P Assessment and Plan (1) Essential (primary) hypertension: Code(s): I10 - Essential (primary) hypertension Status: Acute Assessment and Plan: Hold hydrochlorothiazide Started lisinopril 20 mg p.o. q.d. (2) Hyponatremia: Code(s): E87.1 - Hypo-osmolality and hyponatremia Status: Acute Assessment and Plan: Hold hydrochlorothiazide Possibly due to dilution hyponatremia from fluids will give 1 gram sodium chloride today, can have 1 gram daily, will need additional 1 day if discharged per ortho today. will need bmp outpatient on Wednesday If necessary will order further workup outpatient. stable can be discharged per ortho today (3) History of arthroplasty: Code(s): Z96.60 - Presence of unspecified orthopedic joint implant Status: Acute Assessment and Plan: Underwent left knee arthroplasty PT OT Anticoagulation as per surgery team Plan - patient can be discharged per Ortho. Time Spent With Patient Time with patient: Greater than 35 minutes Subjective Date/time seen: 10/05/24 07:16 Interval history: Patient progressing well. Sodium is 129 today, in 08/17/24 it appeared to be 132. Patient was given 500 mg po sodium chloride and kept fluids awilda 75. Increased from 127 - 129. Will given 1 gram today, will need BMP in 3 days, and have 1 gram po daily for 1 additional day. States her knee feels a painful when she is working with PT, otherwise she is doing well. Review of Systems Review of Systems: Review of Systems: All systems review ed & are unremarka ble except as note d in HPI and below Constitutional: Constitutional: Re ports no additiona l constitutional c omplaints Eyes: Eyes: Reports as p er HPI, Denies bli nd spots, Denies b lurry vision, Jaxon es change in visio n, Denies eye disc harge, Denies dry eyes, Denies irrit ation, Denies itch y eyes and Denies eye pain ENT: Reports system rev iewed and no addit ional complaints, except as document ed Cardiovascular: Cardiovascular: Re ports no additiona l cardiovascular c omplaints, Denies chest pain and Den ies dyspnea Respiratory: Respiratory: Repor ts no additional r espiratory complai nts, Denies chest congestion, Denies cough and Denies dyspnea Gastrointestinal: Gastrointestinal: Reports no additio nal gastrointestin al complaints, Den ies abdominal pain , Denies nausea an d Denies vomiting Musculoskeletal: Musculoskeletal: R eports no addition al musculoskeletal complaints Integumentary/[place] sts: Skin/Breast: Repor ts system reviewed and no additional complaints, excep t as docu Neurologic: Reports system rev iewed and no addit ional complaints, except as document ed Psychiatric: Psychiatric: Repor ts no additional p sychiatric complai nts Allergic/Immunolog ic: Allergic/Immunolog ic: Reports no add itional allergic/i mmunologic complai nts Exam Narrative: Chest: Chest palpation & inspection: normal inspection of the chest Resp: Effort & Inspectio n: normal respirat ory effort and abl e to speak in comp lete sentences Cardio: Rate: regular rate Skin: General skin exam: normal color and no rashes or lesio ns noted Lesions: no lesions Rashe s: no rashes Trau ma: no lacerations or abrasions Wou nds: no wounds Neuro: General: patient o riented x3, gait n ormal, tone normal , moves all extrem ities and no menin geal signs Crania l nerves: Yes Equa l, round and react david pupils present Cognition (Neuro ): normal cognitio n Speech: normal speech Gait exam (Neuro): Normal ga it present Extrem: General: normal to inspection, full ROM, capillary ref ill normal and nor mal gait Psych: Appearance: grossl y normal and well kempt Mental Stat us: mental status grossly normal Sp eech and movement: Normal speech and movement present and Clear speech p resent Affect: no rmal affect Attit ude: cooperative Objective Data Vital Signs Vital Signs: Vital Signs - 24 hr 10/04/24 14:00 10/04/24 21:29 10/04/24 22:00 Temperature 97.9 F 97.3 F L Pulse Rate 89 80 Respiratory Rate 18 18 Blood Pressure 141/79 H 147/67 H Pulse Oximetry 99 93 Oxygen Delivery Room Air 10/05/24 05:11 Temperature 98.2 F Pulse Rate 78 Respiratory Rate 16 Blood Pressure 123/72 Pulse Oximetry 94 Oxygen Delivery Intake/Output Intake/Output: Intake & Output 10/02/24 10/03/24 10/04/24 10/05/24 23:59 23:59 23:59 23:59 Intake Total 1040 1880 2420 750 Balance 1040 1880 2420 750 Meds/Results Medications: Active Medications Generic Name Dose Route Start Last Admin Trade Name Freq PRN Reason Stop Dose Admin Acetaminophen 650 mg 10/02/24 18:00 10/05/24 06:36 Acetaminophen 325 Mg Tablet PO 650 mg Q6HR [facility] Administration Aspirin 81 mg 10/02/24 17:00 10/04/24 17:40 Aspirin 81 Mg Enteric Tablet PO 81 mg BID [facility] Administration Cyclobenzaprine HCl 10 mg 10/02/24 16:13 Cyclobenzaprine Hcl 10 Mg Tablet PO Q8H PRN Spasms Diltiazem HCl 240 mg 10/03/24 09:00 10/04/24 09:36 Diltiazem Hcl Cd 240 Mg Cap.24hr PO 240 mg DAILY [facility] Administration Diphenhydramine HCl 25 mg 10/02/24 16:13 Diphenhydramine Hcl Inj 50 Mg/Ml Vial IV PUSH Q6H PRN Itching Famotidine 20 mg 10/02/24 21:00 10/04/24 21:19 Famotidine 20 Mg Tablet PO 20 mg Q12HR [facility] Administration Hydrochlorothiazide 25 mg 10/03/24 09:00 10/03/24 08:15 Hydrochlorothiazide 25 Mg Tablet PO 25 mg QAM [facility] Administration Hydromorphone HCl 1 mg 10/02/24 16:13 Hydromorphone Hcl Inj (*Crx) 1 Mg/Ml Syr IV PUSH Q2H PRN Breakthrough Pain Rated 7-10 or NPO Hydromorphone HCl 0.5 mg 10/02/24 16:13 Hydromorphone Hcl Inj (*Crx) 1 Mg/Ml Syr IV PUSH Q2H PRN Breakthrough Pain Rated 4-6 or NPO Sodium Chloride 1,000 mls @ 75 mls/hr 10/04/24 08:25 10/04/24 23:59 Normal Saline Iv IV CONT 75 mls/hr .[id number] [facility] Administration Lisinopril 20 mg 10/04/24 09:00 10/04/24 09:36 Lisinopril 20 Mg Tablet PO 20 mg QAM [facility] Administration Meloxicam 7.5 mg 10/02/24 17:00 10/04/24 17:40 Meloxicam 7.5 Mg Tablet PO 7.5 mg BID [facility] Administration Naloxone HCl 0.1 mg 10/02/24 16:13 Naloxone Hcl 0.4 Mg/Ml Vial IV PUSH Q2M PRN Opiate Reversal Ondansetron HCl 4 mg 10/02/24 16:13 Ondansetron Inj 4 Mg/2 Ml Vial IV PUSH Q4H PRN Nausea And Vomiting Oxycodone/Acetaminophen 1 tablet 10/02/24 16:13 Oxycodone/Acetaminophen (*Crx) 5-325 Mg Tablet PO Q4H PRN Pain Rated 4-6 Oxycodone/Acetaminophen 1 tab 10/02/24 16:13 Oxycodone/Acetaminophen (*Crx) 10-325 Mg Tablet PO Q6H PRN Pain Rated 7-10 Polyethylene Glycol 17 gm 10/03/24 09:00 10/04/24 09:36 Polyethylene Glycol 3350 17 Gm Powd.Pack PO 17 gm QAM [facility] Administration Prednisone 5 mg 10/03/24 08:00 10/04/24 09:36 Prednisone 5 Mg Tablet PO 5 mg DAILY@0800 [facility] Administration Senna/Docusate Sodium 2 tab 10/02/24 17:00 10/04/24 17:40 Senna/Docusate Sodium Tablet PO 2 tab BID [facility] Administration Timolol Maleate 1 drop 10/03/24 09:00 10/04/24 09:38 Timolol Maleate Xe 0.5% Ophth Gel Soln 5 Ml Btl EACH EYE 1 drop DAILY [facility] Administration Tramadol HCl 50 mg 10/02/24 16:13 10/04/24 22:38 Tramadol Hcl (*Crx) 50 Mg Tablet PO 50 mg Q4H PRN Administration Pain Rated 1-3 Radiology Results: ITS Impressions Knee X-Ray 10/02/24 15:48 IMPRESSION: Expected postsurgical changes, with no radiographic evidence of procedure or hardware related complication. Labs Labs: Laboratory Results - last 24 hr 10/04/24 10/04/24 10/05/24 08:13 15:14 06:19 WBC 9.5 RBC 3.58 L Hgb 11.4 L Hct 33.2 L MCV 92.7 MCH 31.8 MCHC 34.3 RDW 13.0 Plt Count 344 MPV 8.9 Immature Gran % (Auto) 0.6 H Neut % (Auto) 66.4 Lymph % (Auto) 21.2 [place] % (Auto) 10.8 H Eos % (Auto) 0.6 Baso % (Auto) 0.4 Lymph # (Auto) 2.01 [place] # (Auto) 1.0 H Eos # (Auto) 0.1 Baso # (Auto) 0.0 Abs Immat Gran (auto) 0.06 H Absolute Neuts (auto) 6.3 Absolute Nucleated RBC 0.000 Nucleated RBC % 0.0 Sodium 128 L 127 L 128 L Potassium 3.7 4.4 3.5 Chloride 88 L 91 L 96 L Carbon Dioxide 30 26 27 Anion Gap 10 10 5 BUN 11 17 10 D Creatinine 0.60 L 0.65 L 0.53 L Estim Creat Clear Calc 64 59 71 Estimated GFR > 60 > 60 > 60 Glucose 93 111 H 86 Calcium 9.4 9.1 8.5 Total Bilirubin 0.8 0.6 0.6 AST 31 26 22 ALT 16 16 12 Alkaline Phosphatase 95 91 74 Total Protein 7.0 7.0 6.0 L Albumin 4.1 3.9 3.1 L Quality VTE Prophylaxis VTE prophylaxis: mechanical ordered and pharmacologic ordered
[2024-10-05] MEDS: SODIUM CHLORIDE 500 MG TABLET 1000 MG PO (09:15)
[2024-10-05] MEDS: ASPIRIN 81 MG ENTERIC TABLET PO (09:15)
[2024-10-05] MEDS: dilTIAZem HCL CD 240 MG CAP.24HR PO (09:15)
[2024-10-05] MEDS: MELOXICAM 7.5 MG TABLET PO (09:15)
[2024-10-05] MEDS: lisinopriL 20 MG TABLET PO (09:16)
[2024-10-05] MEDS: SENNA/DOCUSATE SODIUM TABLET 2 TAB PO (09:16)
[2024-10-05] MEDS: polyethylene glycoL 3350 17 GM POWD.PACK PO (09:16)
[2024-10-05] MEDS: predniSONE 5 MG TABLET PO (09:16)
[2024-10-05] MEDS: traMADol HCL (*CRX) 50 MG TABLET PO (09:16)
[2024-10-05] MEDS: FAMOTIDINE 20 MG TABLET PO (09:16)
[2024-10-05] MEDS: TIMOLOL MALEATE XE 0.5% OPHTH GEL SOLN 5 ML BTL 1 DROP EACH EYE (09:17)
--- NOTE | 2024-10-05 09:28 | PCPTNOTE ---
On 10/05/24, the student, RUSSELL Burden, provided care and completed [facility] documentation on this patient. I have reviewed the student's documentation and agree with the findings.
--- NOTE | 2024-10-05 13:32 | PM.DS ---
DS: Admitting Diagnosis Discharge Date 10/05/24 Admitting Diagnosis knee arthritis DS: Discharge Diagnosis Discharge Diagnosis (1) Status post left knee replacement: Code(s): Z96.652 - Presence of left artificial knee joint Status: Acute (2) Hyponatremia: Code(s): E87.1 - Hypo-osmolality and hyponatremia Status: Acute Plan Postop day 1: Left total knee arthroplasty. Patient tolerated procedure well. She did have hyponatremia post surgery. Hospitalist was consulted. Sodium stable at 128. She has had a history of low sodium as an outpatient before. Sodium ordered for tomorrow per hospitalist recommendations. She will get blood drawn Wednesday and follow up with her PCP. Pain manageable with pain medication. No numbness or tingling. Patient is very pleased with her progress. We had a lengthy discussion regarding postoperative wound care, limitations, expectations, and exercises. Patient shows good understanding. He has had initial physical therapy and is tolerating it well. DVT prophylaxis: 81 mg baby aspirin b.i.d. for 14 days. Pain medication: Tramadol. Patient has followup appointment with Dr. Coppola in 3 weeks. DS: Summary Hospital Course Reason for hospitalization: Total knee arthroplasty Hospital Course: Patient tolerated procedure well. Has had initial PT/OT. Status at Discharge Functional status at discharge: uses cane/walker Overall status at discharge: patient is progressing back to baseline Time Spent with Patient Time attestation: Total time spent providing and/or coordinating discharge services: Exam Narrative: 74 y/o female. Resting comfortably in bed. Wearing compression socks bilaterally. Dressing intact with no drainage. Moderate swelling. Small area of ecchymosis. No erythema. No hematoma. Range of motion limited due to pain. Calf nontender. Neurologic status intact. No varicosities. Distal pulses palpable. DS: Data Data Completed and Pending Labs on day of discharge: Labs from last 24 hours 10/05/24 10/04/24 06:19 15:14 Sodium 128 L 127 L Potassium 3.5 4.4 Chloride 96 L 91 L Carbon Dioxide 27 26 Anion Gap 5 10 BUN 10 D 17 Creatinine 0.53 L 0.65 L Estim Creat Clear Calc 71 59 Estimated GFR > 60 > 60 Glucose 86 111 H Calcium 8.5 9.1 Total Bilirubin 0.6 0.6 AST 22 26 ALT 12 16 Alkaline Phosphatase 74 91 Total Protein 6.0 L 7.0 Albumin 3.1 L 3.9 Discharge Plan Discharge Attending physician on discharge: Marc Coppola Consulting providers: Vladislav Gillis Discharging Clinician: Anya Hassan Anticipated Discharge Date/Time: 10/05/24 13:26 Patient Disposition: Home, Self-Care Activity: december shower Diet: as tolerated and regular Wound Care Instructions: follow printed instructions Discharge Instructions: See green instruction sheets Patient Instructions: Hyponatremia (GEN) Patient Language: Turkmen Stand Alone Forms: General Discharge Instructions Follow-up/Referrals: Anya Hassan PA [Physician [employer]iliary [employer]] - Discharge Medications: New prednisone 5 mg tablet 5 mg PO DAILY 21 Days Qty: 21 0RF aspirin 81 mg tablet,delayed release (DR/EC) 81 mg PO BID 14 Days Qty: 28 0RF oxycodone-acetaminophen 5-325 mg tablet 1 - 2 tablet PO Q4-6H PRN (Reason: pain) 7 Days Qty: 30 0RF tramadol 50 mg tablet 50 mg PO Q6H PRN (Reason: pain) 7 Days Qty: 30 0RF sodium chloride 1,000 mg tablet,soluble 1,000 mg PO DAILY Qty: 1 0RF Rx Instructions: Take one pill on 10/06/24. sodium chloride 1,000 mg tablet,soluble 1,000 mg PO DAILY Qty: 1 0RF Rx Instructions: Take one pill on 10/06/24. Continued psyllium husk [Metamucil] 0.4 gram capsule 0.4 g PO DAILY cholecalciferol (vitamin D3) 50 mcg (2,000 unit) capsule See Rx Instructions .ROUTE .COMPLEX Qty: 90 1RF Dose Instruction: TAKE 1 CAPSULE BY MOUTH EVERY DAY Rx Instructions: TAKE 1 CAPSULE BY MOUTH EVERY DAY diltiazem HCl 240 mg capsule,extended release 24hr See Rx Instructions .ROUTE .COMPLEX Qty: 90 1RF Dose Instruction: TAKE 1 CAPSULE BY MOUTH EVERY DAY Patient Comments: QAM Rx Instructions: TAKE 1 CAPSULE BY MOUTH EVERY DAY hydrochlorothiazide 25 mg tablet 25 mg PO QAM Qty: 90 1RF timolol maleate 0.5 % gel forming solution 1 drp EACH EYE DAILY Patient Comments: QAM meloxicam 15 mg tablet 15 mg PO DAILY fluticasone propionate [24 Hour Allergy Relief] 50 mcg/actuation spray,suspension 2 spray intranasal DAILY PRN (Reason: nasal congestion) Rx Instructions: administer into each nostril tramadol 50 mg tablet 50 mg PO Q8H PRN (Reason: pain) Held acetaminophen [Tylenol Arthritis Pain] 650 mg tablet extended release 1,300 mg PO Q12H PRN (Reason: pain) Hold Instructions: Resume on 10/09/24. Do not take more than 3,000 mg in 24 hours. Oxycodone has 325 mg Tylenol in EACH pill. acetaminophen [Acetaminophen Extra Strength] 500 mg tablet 1,000 mg PO Q6H PRN (Reason: pain) Hold Instructions: Resume on 10/09/24. Do not take more than 3,000 mg in 24 hours. Oxycodone has 325 mg Tylenol in EACH pill. Date of admission: 10/04/24 16:18 Primary Care Provider: Holly Vizcaino Admitting Provider: Marc Coppola Attending physician on admission: Marc Coppola Condition: Stable
[2024-10-05 14:00] VITALS: BP 135/63; PULSE 84; RESP 20; TEMP 36.3; O2SAT 96
== END 2024-10-05 14:26 | disposition home or self-care (01) | DRG 982 ==
LOC: ANHSURGERY 16:21 → ANH3MEDSUR 16:21
PROVIDERS: Nurse Practitioner Family; Admitting Provider Orthopaedic Surgery; PCP Nurse Practitioner Family; Visit Provider Physician Assistant Surgical
PROC: 0SRD069 Replacement of Left Knee Joint with Oxidized Zirconium on Polyethylene Synthetic Substitute, Cemented, Open Approach (ICD-10-PCS; CPT 27447; principal; 2024-10-02 12:00)
DX: E87.1 Hypo-osmolality and hyponatremia (principal); M84.452A Pathological fracture, left femur, initial encounter for fracture; M87.852 Other osteonecrosis, left femur; M17.12 Unilateral primary osteoarthritis, left knee; I10 Essential (primary) hypertension; K76.89 Other specified diseases of liver; Z85.038 Personal history of other malignant neoplasm of large intestine; Z87.891 Personal history of nicotine dependence
CPT/HCPCS: 36415; 73560; 80048; 80053; 85025; 97110; 97116; 97161; 97165; 97530; 97535; C1776; A9270; C1713; G0378; J0171; J0690; J1100; J1171; J1885; J2003; J2270; J2405; J2704; J2795; J3010; J7030; J7120; J7512

== ENCOUNTER 2025-07-06 08:12 | Emergency (ER) | payer MEDICARE, SELFPAY ==
--- OUTSIDE RECORDS SUMMARY | 2025-07-06 08:15 | XMS_ITS | Clinical Summary ---
Author Organization [facility] Address [address] [place] [address] Care Team Providers Care Color Repairer Name Role Phone Holly Vizcaino IRENA-MASONRY SUPERVISOR Primary Care Provider + Source Comments [facility],non-owned Affiliates and Associated Physician Practices is amultiple site organization consisting of ambulatory clinics and hospital sitesin [place], [place] and [place]. This disclosure is being madepursuant to the Care Everywhere program and may not contain all information available regarding this patient. Last updated 18.[facility] Allergies Active Allergy Reactions Criticality Noted Date Comments Bacitracin Unknown 06/11/2020 Codeine Nausea and/or Vomiting 11/06/2009 Allergies per ivp questioning Molds & Smuts Unknown 06/11/2020 Neomycin Unknown 06/11/2020 Polymyxin B Unknown 06/11/2020 Medications * Be aware that medications may not be up to date on this document. Alwaysverify current medications with the patient. timolol gel-forming (TIMOPTIC-XE) 0.5 % ophthalmic gel-forming [...] (one) tablet by mouth once daily Active hydroCHLOROthia zide (Hydrodiuril) 12.5 MG Take 1 (one) tablet by mouth once daily 07/07/2023 Active lisinopril (Prinivil; Zestril) 20 MG tablet 1 (one) tablet every morning 01/03/2025 Active meloxicam (Mobic) 15 MG tablet Take 1 (one) tablet by mouth once daily 09/23/2024 Active Active Problems Problem Noted Date Diagnosed Date Cervicalgia 06/03/2011 Immunizations Immunization Administration Dates Next Due Covid Pfizer primary [...] drink = 0.6 oz pur e alcohol) PHQ-2 Answer Date Recorded Patient Health Questionnaire-2 Score 0 02/22/2025 Comments No Sex and Gender Information Value Date Recorded Sex Assigned at Not on file Legal Sex 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 Gender Identity Not on file Sexual Orientation Not on file Last Filed Vital Signs Vital Sign Reading Time Taken Comments Blood Pressure 122/74 02/22/2025 1:48 PM CDT Pulse 66 11/06/2009 10:07 AM CDT Temperature 36.3 C (97.4 F) 01/12/2024 1:34 PM CDT Respiratory Rate 16 11/06/2009 10:07 AM CDT Oxygen Saturation - - Inhaled Oxygen Concentration - - Weight 66.4 kg (146 lb 6.4 oz) 02/22/2025 1:48 P M CDT Height 165.1 cm (5' 5) 02/22/2025 1:48 PM CDT Body Mass Index 24.36 02/22/2025 1:48 PM CDT Plan of Treatment Upcoming Encounters Date Type Department Care Team (Late st Contact Info) Description 02/22/2026 1:45 PM CDT Office Visit [facility] [address] [place] [address] Giovany Montenegro MD [address] [address] Health Maintenance Due Date Last Done Comments [...] 2001 ZOSTER VACCINE (1 of 2) 2001 MEDICARE AWV CALENDAR YEAR 2024 COVID-19 VACCINE (4 - season) 2025 05/12/2021, 10/21/2020, 09/29/2020 INFLUENZA VACCINE (#1) 2025 , 05/24/2020, 04/17/2019, Additional history exists Respiratory Syncytial Virus (RSV) Vaccine Pt: or over 60 yrs (1 - 1-dose 75+ series) 2026 DEPRESSION SCREENING Completed 02/22/2025 HEPATITIS B VACCINE Aged Out No longe r eligible based on patient's age to complete this topic HIB VACCINE Aged Out No longer eligi ble based on patient's age to complete this topic HPV VACCINE Aged Out No longer eligi ble based on patient's age to complete this topic MENINGOCOCCAL (Group B) VACCINE SHARED DECISION-MAKING Aged Out No longer eligible based on patient's age to complete this topic MENINGOCOCCAL GROUPS A/C/Y/W VACCINE Aged Out No longer eligible based on patient's age to complete this topic Insurance [facility] MANAGED MEDICARE ADV [place] [id number] [facility] MANAGED MEDICARE ADV Care Teams Color Repairer Relationship Specialty Start Date End Date Holly Vizcaino APRN-PATRICIO [address] [place] [id number] PCP - General Nurse Practitioner 02/22/25
--- OUTSIDE RECORDS SUMMARY | 2025-07-06 08:15 | XMS_ITS | Clinical Summary ---
Author Organization [facility] Address [address], [facility] [address] [place] [address] Phone Care Team Providers Care Straightedge Man Name Role Phone Mark Lindo MD Primary Care Provider [phone] Se Corona DO Unavailable [phone] Allergies Active Allergy Reactions Criticality Noted Date [...] Health Maintenance Due Date Last Done Comments Hepatitis C Virus (HCV) Screening 1950 TdaP Immunization 1950 Cologuard 1996 Immunochemical Fecal Occult Blood 1996 Pneumococcal Immunization (50+ years) (1 of 1 - PCV) 2001 Zoster Immunization (1 of 2) 2001 Medicare Initial AWV [id number] 04/06/2020 Colonoscopy 04/13/2022 04/13/2019, 08/10, 06/12/2015 Colorectal Cancer Screening 04/13/2022 Influenza Immunization (#1) 04/09/202505/09, 04/17/2019, 05/12/2018, Additional history exists SARS-COV-2 Immunization ( season) 2025 12/08/2021, 05/12/2021, 10/21/2020, Additional history exists Respiratory Syncytial Virus (RSV) Immunization (Adult) (1 - 1-dose 75+ series) 2026 Hepatitis B Immunization Aged Out No longer eligible based on patient's age to complete this topic Human Papillomavirus (HPV) Immunization Aged Out No longer eligible based [...] Relevant to Health Maintenance Insurance MEDICARE C [facility] on file Care Teams Straightedge Man Relationship Specialty Start Date End Date Mark Lindo MD [address] [place], [place] [phone] PCP - General Family Medicine 09/08/16 Se Corona DO [address] [place] [address] Gastroenterology 09/08/16
[2025-07-06 08:22] VITALS: BP 155/86; PULSE 86; RESP 18; TEMP 35.9; O2SAT 98
--- NOTE | 2025-07-06 08:23 | ED.URI ---
HPI - URI/Sore Throat General Chief Complaint: Upper Respiratory Infection Stated Complaint: Sore throat, sinus symptoms Source: patient Mode of arrival: ambulatory Limitations: no limitations History of Present Illness HPI Narrative: This is a 75 y/o female that presents with a 3 day history of cough, sinus congestion, sore throat and left ear pain. Patient states she has not had fever, but endorses chills, sinus congestion, sore throat and fatigue. Patient is able to eat and drink without distress. Patient has only taken a few advil for discomfort. No cough or cold medications. Unknown sick contacts. MD elicited complaint: cough and sore throat Onset (ago): day(s) (3) Consistency: constant Severity: mild Description of mucous: clear Able to tolerate fluids by mouth: Yes Exacerbating factors: nothing Relieving factors: nothing Associated symptoms: nasal congestion, sore throat and ear pain Treatments prior to arrival: cold medicine Related Data Home Medications ?Medication ?Instructions ?Recorded ?Confirmed ?Last Taken ?Type timolol maleate 0.5 % eye gel 1 drp EACH EYE DAILY 08/13/22 03/30/25 08/17/22 History forming solution psyllium husk 0.4 gram capsule 0.4 g PO DAILY 09/28/22 03/30/25 Unknown History (Metamucil) fluticasone propionate 50 2 spray intranasal DAILY PRN nasal 09/28/24 03/30/25 Unknown History mcg/actuation nasal congestion spray,suspension (24 Hour Allergy Relief) Allergies Allergy/AdvReac Type Severity Reaction Status Date / Time codeine AdvReac Intermediate ABD PAIN, Verified 07/06/25 08:14 NAUSEA bacitracin AdvReac Mild Rash Verified 07/06/25 08:14 neomycin AdvReac Mild RASH Verified 07/06/25 08:14 polymyxin B AdvReac Mild Rash Verified 07/06/25 08:14 Review of Systems Review of Systems: All systems reviewed & are unremarkable except as noted in HPI and below PMFSH Past Medical History Medical History rodent exterminator prescription opiate use Lateral meniscus tear Subchondral insufficiency fracture of condyle of left femur Orthopedic aftercare for joint replacement Knee osteonecrosis, left Left knee DJD Encounter to establish care Encounter for immunization (04/17/19) Adverse effect of sulfonamides, initial encounter Abnormal mammogram Sebaceous cyst Orthopedic aftercare Hypertension Complex tear of lateral meniscus of right knee Hepatic cyst Needs periodic surveillance with CT or MRI Colon cancer 2014 colectomy stage one History of stress test (~2013) Right knee DJD Lipoma Breast tumor 1977, 1980, 2002 Calculus of parotid gland (~2010) Surgical History Surgical History History of arthroplasty History of meniscectomy of right knee (~08/17/22) Arthroscopic Lateral H/O lumpectomy Hx of breast biopsy History of hysterectomy (~1974) History of cataract extraction (~1995) History of colectomy (~2013) History of colonoscopy (~09/02/16) Family History Family History Mother Hypertension Diabetes mellitus Family history of glaucoma Family history of cardiovascular disease Father Hypertension Family history of malignant melanoma Sibling Cerebrovascular accident Other Family history of allergic disorder Family history of seizure disorder Social History Social History Smoking packs per day: 1 Smoking cigarettes per day: 20.0 Years smoked: 40 Smoking pack-years: 40.00 Smoking status: Former smoker Tobacco type: cigarettes Smoking end date: 08/09/11 Alcohol intake: never Substance use: never Substance use type: does not use Lack of Transportation: No Lack of Food: Never True Current Housing: I Have Housing Concerned About Future Housing: Decline to Answer Difficulty Paying Gas/Electric Bills: Decline to Answer Difficulty Paying for Meds: Decline to Answer Currently Unemployed: Decline to Answer Education: High School Diploma/GED Difficulty w/ Childcare or Family Care: No Living arrangements: with family Additional living arrangements comments: HUSB Gender identity (if verbalized by the patient): Female Sexual Orientation (if Verbalized by the Patient): Straight or Heterosexual Spiritual care concerns: No Exam Const: General: healthy appearing and no acute distress Nutritional Appearance: well nourished Orientation/consciousness: patient oriented x3 Limitations: no limitations HENMT: Head: normal to inspection Ears: TM's normal bilaterally Face/Nose/Sinus: Normal external nose present and Nasal discharge present clear Face and sinus: normal facial exam Mouth: Yes Normal oral and palatal mucosa present Teeth and gingiva: dentition normal (has dentures) Other: posterior oropharrynx notes post nasal drip Eyes: Conjunctivae: conjunctivae normal Pupils: Equal, round and reactive pupils present EOM: EOMs intact bilaterally Neck: Neck: normal visual inspection Resp: Effort & Inspection: normal respiratory effort Auscultation: clear to auscultation bilaterally Cardio: Rate: regular rate Rhythm: regular rhythm GI: Inspection: distended GI Palp: Yes Soft to palpation and Yes Tenderness to palpation present (GI) Auscultation: normal bowel sounds Rectal Exam: normal sphincter tone Skin: General skin exam: normal color Rashes: no rashes Wounds: no wounds Neuro: General: patient oriented x3 and moves all extremities Extrem: General: normal to inspection Psych: Mental Status: mental status grossly normal Affect: normal affect Attitude: cooperative Course Course Emergency Course: This is a 75 y/o female that presents with a 3 day history of cough, sinus congestion, sore throat and left ear pain. Patient states she has not had fever, but endorses chills, sinus congestion, sore throat and fatigue. Patient is able to eat and drink without distress. Patient has only taken a few advil for discomfort. No cough or cold medications. Unknown sick contacts. Level of Care: Express Care Visit Vital Signs Vital signs: Vital Signs Temperature 96.7 F L 07/06/25 08:22 Pulse Rate 86 07/06/25 08:22 Respiratory Rate 18 07/06/25 08:22 Blood Pressure 155/86 H 07/06/25 08:22 Pulse Oximetry 98 07/06/25 08:22 Oxygen Delivery Room Air 07/06/25 08:22 Temperature 96.7 F L 07/06/25 08:22 Pulse Rate 86 07/06/25 08:22 Respiratory Rate 18 07/06/25 08:22 Blood Pressure 155/86 H 07/06/25 08:22 Pulse Oximetry 98 07/06/25 08:22 Oxygen Delivery Room Air 07/06/25 08:22 MDM - URI/Sore Throat MDM Narrative Medical decision making narrative: This is a 75 y/o female that presents with a 3 day history of cough, sinus congestion, sore throat and left ear pain. Patient states she has not had fever, but endorses chills, sinus congestion, sore throat and fatigue. Patient is able to eat and drink without distress. Patient has only taken a few advil for discomfort. No cough or cold medications. Unknown sick contacts. discussed lab results in detail. Discussed her treatment options and patient prefers medication management patient educated to take antibiotic and prednisone as prescribed. increase fluids rest cough and cold medications as package instructs visks vapor rub and cough drops for sore throat relief follow up with your Primary Doctor on Wednesday return to er with any worrisome sign or symptom Differential Diagnosis Differential diagnosis: Likely upper respiratory infection, otitis media, sinusitis, viral infection, bronchitis and pharyngitis Medical Records Attestation: I reviewed the patient's medical records. Lab Data Attestation: I reviewed the patient's lab results. Labs: strep rapid negative Influenza negative Covid negative Discharge Plan Discharge Clinical Impression: Upper respiratory infection Qualifiers: URI type: unspecified URI Qualified Code(s): J06.9 - Acute upper respiratory infection, unspecified Patient Disposition: Home Condition: Stable Instructions: Antibiotic Form, Cold Symptoms (ED) Additional Instructions: take antibiotic and prednisone as prescribed. increase fluids rest cough and cold medications as package instructs vicks vapor rub and cough drops for sore throat relief follow up with your Primary Doctor on Wednesday return to er with any worrisome sign or symptom Patient Language: Bahraini Prescriptions: New prednisone 10 mg tablet 10 mg PO BID Qty: 10 0RF amoxicillin 500 mg capsule 500 mg PO Q12H Qty: 14 0RF No Action psyllium husk [Metamucil] 0.4 gram capsule 0.4 g PO DAILY cholecalciferol (vitamin D3) 50 mcg (2,000 unit) capsule See Rx Instructions .ROUTE .COMPLEX Qty: 90 1RF Dose Instruction: TAKE 1 CAPSULE BY MOUTH EVERY DAY Rx Instructions: TAKE 1 CAPSULE BY MOUTH EVERY DAY amoxicillin 500 mg tablet 500 mg PO ONCE Qty: 4 0RF Rx Instructions: Take 4 tablets 1 hour prior to procedure. timolol maleate 0.5 % gel forming solution 1 drp EACH EYE DAILY Patient Comments: QAM fluticasone propionate [24 Hour Allergy Relief] 50 mcg/actuation spray,suspension 2 spray intranasal DAILY PRN (Reason: nasal congestion) Rx Instructions: administer into each nostril lisinopril 20 mg tablet 20 mg PO QAM Qty: 90 1RF diltiazem HCl 240 mg capsule,extended release 24hr See Rx Instructions .ROUTE .COMPLEX Qty: 90 1RF Dose Instruction: TAKE 1 CAPSULE BY MOUTH EVERY DAY Patient Comments: QAM Rx Instructions: TAKE 1 CAPSULE BY MOUTH EVERY DAY Follow-up/Referrals: Holly Vizcaino APRN [Primary Care Provider, Internal Medicine] Time of Disposition: 08:59
[2025-07-06 08:57] LABS: EDCOVIDSCREEN Negative (Negative); EDINFLUASCREEN Negative (Negative); EDINFLUBSCREEN Negative (Negative); EDSTREPNEGPOS1 Negative (Negative)
== END 2025-07-06 09:04 | disposition home or self-care (01) ==
PROVIDERS: Emergency Provider Nurse Practitioner Family; PCP Nurse Practitioner Family
DX: J06.9 Acute upper respiratory infection, unspecified (principal); Z20.822 Contact with and (suspected) exposure to COVID-19; I10 Essential (primary) hypertension; M17.0 Bilateral primary osteoarthritis of knee; Z87.891 Personal history of nicotine dependence
CPT/HCPCS: 87081; 87426; 87804; 87880; 99213; G0463

== ENCOUNTER 2025-07-19 08:37 | Outpatient (CLI) | payer MEDICARE, SELFPAY ==
--- NOTE | ~2025-07-19 | MM_ITS ---
EXAMINATION: MM screening lyubov BI w paulo HISTORY: Screening. TECHNIQUE: Craniocaudal and mediolateral oblique 3-D tomosynthesis images were obtained and synthetic 2-D images were generated. CAD analysis was submitted and interpreted. COMPARISON: 2023, 2022, and 2020. BREAST PARENCHYMAL COMPOSITION: Not Dense: There are scattered areas of fibroglandular FINDINGS: No suspicious masses are seen. There are no suspicious calcifications. No unexplained architectural distortion is seen. There are no skin or nipple abnormalities identified. There is no adenopathy seen on the images submitted. IMPRESSION: No mammographic evidence to suggest malignancy is seen. The patient may return to screening mammography as per ACR guidelines. BI-RADS 1 - Negative. Reviewed, dictated and finalized at location [facility]. [facility]
== END 2025-07-19 08:38 | disposition home or self-care (01) ==
LOC: ANHFOHIMG 08:39
PROVIDERS: PCP Nurse Practitioner Family; Visit Provider Nurse Practitioner Family
DX: Z12.31 Encounter for screening mammogram for malignant neoplasm of breast (principal)
CPT/HCPCS: 77063; 77067